=== PATIENT | male | born 1965 | race Caucasian/White ===

== ENCOUNTER → 2021-07-05 | Outpatient (CLI) | payer BC ==
[~2021-07-05] MED LIST: AMLO1TAB24 PO; ATOR1TAB21 PO; ECOT81TA5 PO; LOSA100T5 PO; LOSA100T50 PO; METO1TAB32 PO; PRIM50TA6 PO
== END ==
LOC: M LABSMTC 10:36
PROVIDERS: ATTEND Surgery
DX: Z20.828 Contact with and (suspected) exposure to other viral communicable diseases (principal); Z11.52 Encounter for screening for COVID-19

== ENCOUNTER 2021-07-10 09:36 | Day surgery (SDC) | payer BC ==
[~2021-07-10] VITALS: Ht 177.8 cm; Wt 87.5 kg
[~2021-07-10 09:36] MED LIST changes: +LIDOCAINE 2% 100MG/5ML SDV (FOR ANES.) As Ordered ONE; +NS 1,000 ML IV ONE; +propofoL 200 MG/20 ML VIAL As Ordered ONE
--- OUTSIDE RECORDS SUMMARY | 2021-07-10 09:44 | CCD | Continuity of Care Document ---
Author Author Remi Gannon Organization Unknown Address [address] [place] [address] [place] [address] Phone [phone] Care Team Providers Care Metal Drawer Name Role Phone Fani Cain AUTM [phone] Problems Active Problems Provider Date Chest pain Jayy Dill MD Onset: 07/2021 Dyspnea Jayy Dill MD Onset: 07/2021 Mixed hyperlipidemia Jayy Dill MD Onset: Essential hypertension Jayy Dill MD Onset: 04/30/2021 Social History Type Date Description Comments Sex Unknown ETOH Use Denies alcohol use Tobacco Use Start: Unknown Patient has never smoked Recreational Drug Use Denies Drug Use Allergies, Adverse Reactions, Alerts Description No Known Drug Allergies Medications Active Medications SIG Qnty Indications Ordering Provide r Date Amlodipine Besylate 5mg Tablets 1 by mouth every day Unknown Primidone 50mg Tablets 1 Tab Daily Unknown Losartan Potassium/Hydrochlorothiazide 100-25mg Tablets 1 by mouth every day Unknown /0 000 Medications Administered in Office Medication SIG Qnty Indications Ordering Provider Date Regadenoson, 0.1 MG Injection Jagdeep 06/04/2021 Covid-19 vaccine, Unspecified Inj ection Unknown 11/04/2020 Covid-19 vaccine, Unspecified Inj ection Unknown 10/07/2020 Immunizations CPT Code Status Date Vaccine Lot # U-Flu Refused 04/30/2021 Influenza,Unspecified Vital Signs Date Vital Result Comment 04/30/2021 7:29am BP Systolic Right Arm 131 mmHg BP Diastolic Right Arm 84 mmHg Heart Rate 64 /min Weight 201.00 lb Height 70 inches 5'10" BMI (Body Mass Index) 28.8 kg/m2 09/30/20 High Density Lipid 51 Low Density Lipid 131 Triglycerides 141 Total Cholesterol 198 O2 % BldC Oximetry 98 % Ra BSA (Body Surface Area) 2.09 m2 Results Description No Information Available Procedures Date Code Description Status 06/04/2021 93555 Complete ECHO Completed 06/04/2021 08942 Complete ECHO Completed 06/04/2021 82753 Cardiovascular Stress Test W/Int erpretation & Report Completed 06/04/2021 36517 Spect Image, Multiple,W/Ejection Fraction And Wall Motion Completed 04/30/2021 18055 Office/Outpatient New Moderate M DM 45-59 Minutes Completed Medical Devices Description No Information Available Encounters Type Date Location Provider Dx Diagnosis Office Visit 04/30/2021 9:00a [facility] Jayy Mccloud MD R07.9 Chest pain, unspecified R06.02 Shortness of breath E78.2 Mixed hyperlipidemia I10 Essential (primary) hyperten lulu Assessments Date Code Description Provider 06/04/2021 R07.9 Chest pain, unspecified Jayy Carpio MD 06/04/2021 R07.9 Chest pain, unspecified Melodie Moreno MD 06/04/2021 I10 Essential (primary) hypertension Jayy Dill MD 06/04/2021 R07.9 Chest pain, unspecified Jagdeep 06/04/2021 R06.02 Shortness of breath Elizabeth Moreno MD 06/04/2021 R07.9 Chest pain, unspecified Ruby D 06/04/2021 I10 Essential (primary) hypertension Melodie Moreno MD 06/04/2021 I10 Essential (primary) hypertension Jagdeep 06/04/2021 I10 Essential (primary) hypertension Ruby D 06/04/2021 R06.02 Shortness of breath Jagdeep 04/30/2021 R07.9 Chest pain, unspecified Jayy Carpio MD 04/30/2021 R06.02 Shortness of breath Jayy Faith MD 04/30/2021 E78.2 Mixed hyperlipidemia Jayy Zhang MD 04/30/2021 I10 Essential (primary) hypertension Jayy Dill MD Plan of Treatment Future Appointment(s):* 06/11/2021 11:00 am - Jenni Sargent NP at [facility] Functional Status Description No Information Available Mental Status Description No Information Available Referrals Description No Information Available
--- OUTSIDE RECORDS SUMMARY | 2021-07-10 09:44 | CCD | Continuity of Care Document ---
Author Author Remi BOYER Organization Unknown Address [address] [place] [address] [address] [place] [address] Phone [phone] Care Team Providers Care Crop Grain Or Livestock Farmer Name Role Phone Fani Cain AUTM [phone] Problems Active Problems Provider Date Chest pain Jayy Boyer MD Onset: 07/2021 Dyspnea Jayy Boyer MD Onset: 07/2021 Mixed hyperlipidemia Jayy Boyer MD Onset: Essential hypertension Jayy Boyer MD Onset: 04/30/2021 Social History Type Date [...] Medication SIG Qnty Indications Ordering Provider Date Covid-19 vaccine, Unspecified Inj ection Unknown 11/04/2020 [...] Information Available Procedures Date Code Description Status 04/30/2021 37086 Office/Outpatient New Moderate M DM 45-59 Minutes Completed Medical Devices Description No Information Available Encounters Type Date Location Provider Dx Diagnosis Office Visit 04/30/2021 9:00a [facility] aJyy Mccloud MD R07.9 Chest pain, unspecified R06.02 Shortness of breath E78.2 Mixed hyperlipidemia I10 Essential (primary) hyperten lulu Assessments Date Code Description Provider 04/30/2021 R07.9 Chest pain, unspecified Jayy Carpio MD 04/30/2021 R06.02 Shortness of breath Jayy Faith MD 04/30/2021 E78.2 Mixed hyperlipidemia Jayy Zhang MD 04/30/2021 I10 Essential (primary) hypertension Jayy Boyer MD Plan of Treatment Future Appointment(s):* 06/11/2021 11:00 am - Jenni Sargent NP at [facility] * 06/04/2021 8:30 am - Ruby Barragan at [facility] * 06/04/2021 8:15 am - Jagdeep at [facility] Functional Status Description No Information Available Mental Status Description No Information Available Referrals Description No Information Available
--- OUTSIDE RECORDS SUMMARY | 2021-07-10 09:44 | CCD | Continuity of Care Document ---
Author Author Remi MCLEAN MAILING SPECIALIST Organization Unknown Address [address] [place] [address] [place] [address] Phone [phone] Care Team Providers Care Salt Maker Name Role Phone Fani Cain AUTM [phone] Problems Active Problems Provider Date Chest pain Jayy Dill MD Onset: 07/2021 Dyspnea Jayy Dill MD Onset: 07/2021 Mixed hyperlipidemia Jayy Dill MD Onset: Essential hypertension Jayy Dill MD Onset: 04/30/2021 Dietary management surveillance Jenni Mclean NP Onset: 0 06/11/2021 Abnormal results of cardiovascular function studies Jenni Mclean NP Onset: 06/11/2021 Social History Type Date Description Comments Sex Unknown ETOH Use Denies alcohol use Recreational Drug Use Denies Drug Use Tobacco Use Start: Unknown End: Unknown Patient is a former smoker Allergies, Adverse Reactions, Alerts Description No Known Drug Allergies Medications Active Medications SIG Qnty Indications Ordering Provide r Date Atorvastatin Calcium 20mg Tablets 1 by mouth every day 90tabs Jayy Dill MD Metoprolol Succinate ER 25mg Tablets ER 24HR 1 by mouth every day 90tabs Laureen Dill MD 06/11/2021 Aspirin 81mg Chewtabs 1 by mouth every day 90units Jayy Dill MD Nitrostat 0.4mg Tablets Sub 1 tab under tongue, repeat q5 mins x2, as needed for chest pain 25tabs Jayy Dill MD 06/11/2021 Amlodipine Besylate 5mg Tablets 1 by mouth [...] Influenza,Unspecified Vital Signs Date Vital Result Comment 06/11/2021 10:48am BP Systolic Right Arm 120 mmHg BP Diastolic Right Arm 80 mmHg Heart Rate 80 /min Weight 204.00 lb Height 70 inches 5'10" BMI (Body Mass Index) 29.3 kg/m2 O2 % BldC Oximetry 98 % BSA (Body Surface Area) 2.10 m2 04/30/2021 7:29am BP Systolic Right Arm 131 [...] Information Available Procedures Date Code Description Status 06/11/2021 34088 Office/Outpatient Established Mo d MDM 30-39 Min Completed 06/04/2021 51243 Complete ECHO Completed 06/04/2021 08359 Complete ECHO Completed 06/04/2021 22143 Cardiovascular Stress Test W/Int erpretation & Report Completed 06/04/2021 40270 Spect Image, Multiple,W/Ejection Fraction And Wall Motion Completed 04/30/2021 51176 Office/Outpatient New Moderate M DM 45-59 Minutes Completed Medical Devices Description No Information Available Encounters Type Date Location Provider Dx Diagnosis [facility] MAILING SPECIALIST R94.39 Abnormal result of other cardiovascular function study I10 Essential (primary) hyperten lulu E78.2 Mixed hyperlipidemia Z71.3 Dietary counseling and surve illance Office Visit 04/30/2021 9:00a [facility] Jayy Mccloud MD R07.9 Chest pain, unspecified R06.02 Shortness of breath E78.2 Mixed hyperlipidemia I10 Essential (primary) hyperten lulu Assessments Date Code Description Provider 06/11/2021 R94.39 Abnormal result of other cardiov ascular function study Jenni Mclean, BRINDA 06/11/2021 I10 Essential (primary) hypertension Jenni Mclean NP 06/11/2021 E78.2 Mixed hyperlipidemia Jose Mclean NP 06/11/2021 Z71.3 Dietary counseling and surveilla nce Jenni Mclean NP 06/04/2021 R07.9 Chest pain, unspecified Jayy Carpio [...] Dill MD Plan of Treatment Future Appointment(s):* 12/11/2021 8:45 am - Jayy Dill MD at [facility] 06/11/2021 - Jenni Mclean NP* R94.39 Abnormal result of other cardiovascular function study * I10 Essential (primary) hypertension * E78.2 Mixed hyperlipidemia * Z71.3 Dietary counseling and surveillance* New Labs:* Lipid Extended Panel, Ordered: 06/11/21 * Follow up:* 6 months HJ Functional Status Description No Information Available Mental Status Description No Information Available Referrals Description No Information Available
--- OUTSIDE RECORDS SUMMARY | 2021-07-10 09:44 | CCD | Continuity of Care Document ---
Author Organization Unknown Address Unknown Phone Unavailable Care Team Providers Care Bull Chain Operator Name Role Phone Haris Bell JR., M.D. AUTM [facility] - Cardiovascular Disease AUTM [phone] Problems Active Problems Provider Date Essential hypertension Corey Jimenez M.D. 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 Onset: 12/26/2010 Social History Type Date Description Comments Sex Unknown Tobacco Use Start: Unknown Never Used Smokeless Tobacco ETOH Use Consumes 3-4 beers per day Recreational Drug Use Denies Drug Use Tobacco Use Start: Unknown End: Unknown Patient is a former smoker x 10 years, quit in his 30's. Smoking Status Reviewed: 04/09/21 Patient is a former smoker x 10 years, quit in his 30's. Exercise Type/Frequency Exercises sporadically Tattoo/Piercing Tattoo Sun Exposure Does not use sunscreen Seat Belt/Car Seat Always uses seat belt Bike Helmet Always Smoke Alarms Yes Smoke Alarms Carbon Monoxide Detector: Yes Allergies and adverse reactions Description No Known Drug Allergies Medications Active Medications SIG Qnty Indications Ordering Provide r Date Amlodipine Besylate 5mg Tablets Take 1 Tablet By Mouth Every Day For Blood Pressure 90tabs I10 Fani Ibarra FNP 03/07/2021 Primidone 50mg Tablets take 1 tablet by mouth daily 90tabs G25.0 Fani Cain FNP 04/09/2020 Losartan Potassium/Hydrochlorothiazide 100-25mg Tablets Take 1 Tablet By Mouth Every Morning For Blood Pressure 90tabs I10 Alaina Bond M.D. 07/26/2017 Immunizations Description No Information Available Vital Signs Date Vital Result Comment 04/09/2021 1:57pm BP Systolic 125 mmHg BP Diastolic 81 mmHg Heart Rate 80 /min Body Temperature 97.8 F Respiratory Rate 16 /min Height 69 inches 5'9" Weight 200.25 lb O2 % BldC Oximetry 98 % Peak Expiratory Flow Rate 515 Estimated Peak Flow Rate Taft Body Weight 160 lb BMI (Body Mass Index) 29.6 kg/m2 03/07/2021 7:52am BP Systolic 143 mmHg BP Diastolic 89 mmHg BP Systolic Recheck 129 mmHg BP Diastolic Recheck 83 mmHg Heart Rate 72 /min Body Temperature 96.7 F Respiratory Rate 18 /min Height 69 inches 5'9" Weight 199.38 lb O2 % BldC Oximetry 98 % Peak Expiratory Flow Rate 515 Estimated Peak Flow Rate Taft Body Weight 160 lb BMI (Body Mass Index) 29.4 kg/m2 Results Test Acquired Date Facility Test Result H/L Range Note Coronavirus 2019 Nasopharygeal 07/05/[address] [place] [address] [phone] Coronavirus 2019 Nasopharygeal ASSAY INFORMATIO <SEE N OTE> 1 Hemoglobin A1c 03/26/2021 [facility] HGB A1c 5.4 % 4.4 - 6.1 2 Microalbumin Random 03/26/2021 [facility] Creat Ur 261.9 mg/dL High 0.0 - 30.0 Microalbumin <12.00 mg/L High 0.00 - 0.00 MA/Creat Ratio 1.87 MCG/MG 0.01 - 30.00 3 [facility] 1.15 ng/mL 0.00 - 4.00 4 Urinalysis 03/04/2021 [facility] Urinalysis (SEE NOTE) 5, 6 Source Clean Catch Color yellow Normal: Yellow Clarity clear Normal: Clear Spec [place] 1.005 1.001 - 1.030 pH 6.5 5 - 9 Glucose NORM Normal: Negative Bilirubin NEG Normal: Negative Ketone NEG Normal: Negative Protein NEG Normal: Negative Nitrite NEG Normal: Negative Blood NEG Normal: Negative Leuk Est NEG Normal: Negative Urobilinogen NOR less than 1.0 mg/dL Microscopic Not Indicate CBC W/Automated Diff 03/04/2021 [facility] CBC W/Automated Diff (SEE NOTE) 7 WBC 6.8 10^3/uL 4.2 - 11.0 RBC 4.85 10^6/uL 4.50 - 6.30 Hemoglobin 15.5 g/dL 14.0 - 16.0 Hematocrit 44.3 % 41.0 - 51.0 MCV 91.3 fL 80.0 - 94.0 MCH 32.0 pg 27.0 - 34.0 MCHC 35.0 g/dL 31.0 - 36.0 RDW 11.9 % 11.5 - 14.8 Platelets 241 10^3/uL 150 - 450 MPV 9.3 fL 7.4 - 10.4 Neut 50.9 % 37.0 - 80.0 Lymph 34.6 % 25.0 - 40.0 [place] 9.7 % High 3.0 - 8.0 Eos 3.8 % 0.0 - 7.0 Baso 0.7 % 0.0 - 2.0 %Ig 0.3 % High 0.0 - 0.0 %NRBC 0.0 % 0.0 - 0.0 #Neut 3.46 10^3/uL 2.00 - 6.90 #Lymph 2.35 10^3/uL 0.60 - 3.40 #Brun[place] 0.66 10^3/uL 0.00 - 0.90 #Eos 0.26 10^3/uL 0.00 - 0.70 #Baso 0.05 10^3/uL 0.00 - 0.20 #Ig 0.02 10^3/uL 0.00 - 0.10 #NRBC 0.00 10^3/uL 0.00 - 0.00 Manual Diff NOT INDICATED RBC Morph NOT INDICATED PT/PTT 03/04/2021 [facility] Protime 13.3 seconds 11.0 - 15.5 Inr 1.00 0.93 - 1.23 PTT 34.8 seconds 24.8 - 36.7 8 Laboratory test finding 03/04/2021 [facility] l Troponin T <0.01 NG/ML 0.00 - 0.10 9 Comprehensive Metabolic Panel 03/04/2021 [facility] Comprehensive Metabo (SEE NOTE) 10 Sodium 136 mEq/L 134 - 153 Potassium 3.5 mEq/L Low 3.6 - 5.0 Chloride 99 mEq/L 98 - 107 Co2 27 mEq/L 22 - 30 Glucose 80 mg/dL 70 - 99 BUN 17 mg/dL 7 - 21 Creatinine 0.9 mg/dL 0.7 - 1.5 BUN/Creat 19 8 - 27 Total Protein 7.0 g/dL 6.3 - 8.2 Albumin 4.6 g/dL 3.9 - 5.0 Globulin 2.4 GM/DL 2.4 - 3.2 A/G Ratio 1.9 0.8 - 2.0 Calcium 9.5 mg/dL 8.4 - 10.2 Total Bili <0.7 mg/dL 0.2 - 1.3 Alkaline Phos 83 U/L 38 - 126 Sgot/Ast 49 U/L High 5 - 40 SGPT/Alt 51 U/L 7 - 56 Anion Gap 10.0 mmol/L 8.0 - 16.0 Age 55 yrs Non-Aa GFR >60 mL/min Afr Amer GFR >60 mL/min 11 1 ASSAY INFORMATION: Real Time RT-PCR NOTE: The COVID-19 assay has been cleared by the U.S. Food and Drug Administration under the Emergency Use Authorization (EUA). [employer] and [employer] are designated as high complexity laboratories by the Clinical Laboratory Improvement Amendments of 1988(CLIA) and are qualified to perform this test. Not Detected 2 {A1] {HB] 3 The [place] [employer] ation states that Microalbuminemia is present if the Microalbumin/Creatinine ratio exceeds 30 mcg/mg. The threshold for Clinical Albuminuria is reached at 300 mcg/mg. The classification of a patient should be based upon at least 2 or 3 abnormal results on specimens collected within a 3 to 6 month timeframe. 4 \\BLDo\\PSA INTERPRETATION\\BLD x\\ The PSA assay should not be used alone for a screening test or diagnosis for presence or absence of malignant disease. Predictions of disease recurrence should not be based solely on values obtained from serial patient serum values. The PSA result was determined by "[employer]", on the Crist[employer] DELVIS 6000. Values obtained with different assay methods or kits cannot be used interchangeably. 5 SOURCE: Clean Catch 6 URINALYSIS 7 COMPLETE BLOOD COUNT 8 \\BLDo\\INR INTERPRETATION\\BLD x\\ Therapeutic range for Coumadin and related oral anticoagulants. -International Normalized Ratio (INR): 2 .0 - 3.0 for Venous Thrombosis, Pulmonary Embolus, Tissue heart valves, Acute IA Atrial Fibrillation, Valvular heart disease and recurrent Systemic Embolism. -International Normalized Ratio (INR): 2 .5 - 3.5 for Mechanical Prosthetic valve. 9 TROPONIN T 0.1 ng/ml Recommended as the clinical th reshold value for Troponin T. 10 COMPREHENSIVE METABOLIC PANE L 11 Male GFR Interprentation 20-49 yrs >60 mL/min Normal 50-59 yrs >56 mL/min Normal 60-69 yrs >49 mL/min Normal 70-79yrs >42 mL/min Normal 80 and above >35 mL/min Normal Female GFR Interpretation 20-39 yrs >60 mL/min Normal 40-49 yrs >58 mL/min Normal 50-59 yrs >51 mL/min Normal 60-69 yrs >45 mL/min Normal 70-79 yrs >39 mL/min Normal 80 and above >32 mL/min Normal Procedures Date Code Description Status 04/09/2021 78481 Office/Outpatient Established Mo d MDM 30-39 Min Completed 03/07/2021 26927 Office/Outpatient Established Mo d MDM 30-39 Min Completed Medical Devices Description No Information Available Encounters Type Date Location Provider Dx Diagnosis Office Visit 04/09/2021 2:00p Main Office Fani Cain, SEARCH ENGINE OPTIMIZATION ANALYST I10 Essential (primary) hypertension R73.03 Prediabetes G25.0 Essential tremor Z80.42 Family history of malignant neoplasm of prostate Office Visit 03/07/2021 8:00a Main Office Fani Cain, SEARCH ENGINE OPTIMIZATION ANALYST I10 Essential (primary) hypertension R07.89 Other chest pain Assessments Date Code Description Provider 04/09/2021 I10 Essential (primary) hypertension Fani Cain, SEARCH ENGINE OPTIMIZATION ANALYST 04/09/2021 R73.03 Prediabetes StveeachAlexy, SEARCH ENGINE OPTIMIZATION ANALYST 04/09/2021 G25.0 Essential tremor Plemaiteach, Fani , SEARCH ENGINE OPTIMIZATION ANALYST 04/09/2021 Z80.42 Family history of malignant neop lasm of prostate Fani Cain, SEARCH ENGINE OPTIMIZATION ANALYST 03/07/2021 I10 Essential (primary) hypertension Fani Cain, SEARCH ENGINE OPTIMIZATION ANALYST 03/07/2021 R07.89 Other chest pain PleskFani prado , SEARCH ENGINE OPTIMIZATION ANALYST Plan of Treatment Future Appointment(s):* 10/14/2021 11:30 am - Fani Cain FNP at Main Office 04/09/2021 - Fani Cain FNP* I10 Essential (primary) hypertension* New Labs:* Comprehensive Metabolic Profil, Scheduled: 09/22/21 * Lipid Panel, Scheduled: 09/22/21 * Hemoglobin A1c, Scheduled: 09/22/21 * Comments:* controlled, continue current medications * Follow up:* 6 months, with labs for annual * R73.03 Prediabetes* Comments:* A1C improved at 5.4 * G25.0 Essential tremor* Comments:* continue primidone at current dose * Z80.42 Family history of malignant neoplasm of prostate* Comments:* PSA normal Functional Status Functional Condition Comment Date Status Independent with all ADL's Activ e Bifocal glasses Active Ipg in Back nerve stimulator Active Independent with all IADL's Acti ve Mental Status Mental Condition Comment Date Status None Active Referrals Refer to Reason for Referral Status Appt Date [facility] Please evaluate patient for chest pain. Thank you. Closed 04/30/[address] [place] [address] [phone] Ray ALMODOVAR M.D., Haris Bell. Pt is due for his 5 year col onoscopy, pt is requesting dr bell. Thank you. Closed 02/26/2021 [address] [facility] [address] [phone]
--- OUTSIDE RECORDS SUMMARY | 2021-07-10 09:44 | CCD | Continuity of Care Document ---
Author Author Remi BELL MD Organization Unknown Address [address] [facility] [address] [place] [address] Phone [phone] Care Team Providers Care Kier Boiler Name Role Phone Fani Cain N.P. AUTM [phone] Problems Active Problems Provider Date Essential hypertension Haris Bell JR, MD Onset: 02/27/20 21 Social History Type Date Description Comments Sex Unknown ETOH Use 3 A Day Recreational Drug Use Denies Drug Use Tobacco Use Start: Unknown End: Patient is a former smoker Allergies and adverse reactions Description No Known Drug Allergies Medications Active Medications SIG Qnty Indications Ordering Provide r Date Suprep Bowel Prep Kit 17.5-3.13-1.6GM/177ML Solution take per doctor's bowel prep instructions. 354ml Z12.1 1 Haris Bell JR, MD 05/15/2021 Losartan Potassium/Hydrochlorothiazide 100-25mg Tablets 1 tab po qd Alaina Bond M.D. Immunizations Description No Information Available Vital Signs Date Vital Result Comment 02/26/2021 3:11pm Heart Rate 80 /min Height 70 inches 5'10" Weight 198.12 lb BMI (Body Mass Index) 28.4 kg/m2 Anderson Body Weight 166 lb Weight 89.870 kg BSA (Body Surface Area) 2.08 m2 Results Test Acquired Date Facility Test Result H/L Range Note Coronavirus 2019 Nasopharygeal 07/05/2021 [facility] Main Lab [address] [place], [place] [id number] [phone] Coronavirus 2019 Nasopharygeal ASSAY INFORMATIO <SEE N OTE> 1 1 ASSAY INFORMATION: Real Time RT-PCR NOTE: The COVID-19 assay has been cleared by the U.S. Food and Drug Administration under the Emergency Use Authorization (EUA). [employer] and [employer] are designated as high complexity laboratories by the Clinical Laboratory Improvement Amendments of 1988(CLIA) and are qualified to perform this test. Not Detected Procedures Date Code Description Status 02/26/2021 26329 Office/Outpatient New Low MDM 30 -44 Minutes Completed Medical Devices Description No Information Available Encounters Type Date Location Provider Dx Diagnosis Office Visit 02/26/2021 1:30p [facility] KIRA Sharma K63.5 Polyp of colon I10 Essential (primary) hyperten lulu Assessments Date Code Description Provider 02/26/2021 K63.5 Polyp of colon KIRA Lyn 02/26/2021 I10 Essential (primary) hypertension KIRA Lyn Plan of Treatment Future Appointment(s):* 07/24/2021 1:45 pm - KIRA Lyn at [facility] * 07/10/2021 10:40 am - Haris Bell JR, MD at [facility] 02/26/2021 - KIRA Lyn* K63.5 Polyp of colon * I10 Essential (primary) hypertension Functional Status Description No Information Available Mental Status Description No Information Available Referrals Refer to Reason for Referral Status Appt Date Haris Bell JR, MD COLONOSCOPY Scheduled [address] [address] [phone]
--- OUTSIDE RECORDS SUMMARY | 2021-07-10 09:44 | CCD | Continuity of Care Document ---
Author Author Remi Simmons Organization Unknown Address [address] [place] [address] [address] [place] [address] Phone [phone] Care Team Providers Care Immigration Attorney Name Role Phone Fani Cain AUTM [phone] Problems Active Problems Provider Date Chest pain [...] Available Procedures Date Code Description Status 06/04/2021 75514 Complete ECHO Completed 06/04/2021 11522 Complete ECHO Completed 06/04/2021 58075 Cardiovascular Stress Test W/Int erpretation & Report Completed 06/04/2021 35849 Spect Image, Multiple,W/Ejection Fraction And Wall Motion Completed 04/30/2021 11916 Office/Outpatient New Moderate M DM 45-59 Minutes Completed Medical Devices Description No Information Available Encounters Type Date Location Provider Dx Diagnosis Office Visit 04/30/2021 9:00a [facility] Jayy Mccloud MD R07.9 Chest pain, [...] 11:00 am - Jenni Sargent NP at [facility] Functional Status Description No Information Available Mental Status Description No Information Available Referrals Description No Information Available
--- OUTSIDE RECORDS SUMMARY | 2021-07-10 09:45 | CCD ---
Author Author [facility] Organization [facility] Address Unknown Phone Unavailable Care Team Providers Care Mall Manager Name Role Phone Beau, A Sandra PA Unavailable Unavailable Augusta, A Sandra PA Unavailable Unavailable Augusta, A Sandra PA Unavailable Unavailable Beau, A Sandra PA Unavailable Unavailable Augusta, A Sandra PA Unavailable Unavailable Beau, A Sandra PA Unavailable Unavailable Augusta, A Sandra PA Unavailable Unavailable Augusta, A Sandra PA Unavailable Unavailable Augusta, A Sandra PA Unavailable Unavailable Beau, A Sandra PA Unavailable Unavailable Augusta, A Sandra PA Unavailable Unavailable Augusta, A Sandra PA Unavailable Unavailable Beau, A Sandra PA Unavailable Unavailable Augusta, A Sandra PA Unavailable Unavailable Augusta, A Sandra PA Unavailable Unavailable Augusta, A Sandra PA Unavailable Unavailable Beau, A Sandra PA Unavailable Unavailable Augusta, A Sandra PA Unavailable Unavailable Augusta, A Sandra PA Unavailable Unavailable Beau, A Sandra PA Unavailable Unavailable Augusta, A Sandra PA Unavailable Unavailable Augusta, A Sandra PA Unavailable Unavailable Beau, A Sandra PA Unavailable Unavailable Beau, A Sandra PA Unavailable Unavailable Augusta, A Sandra PA Unavailable Unavailable Beau, A Sandra PA Unavailable Unavailable Augusta, A Sandra PA Unavailable Unavailable Beau, A Sandra PA Unavailable Unavailable Augusta, A Sandra PA Unavailable Unavailable Augusta, A Sandra PA Unavailable Unavailable Augusta, A Sandra PA Unavailable Unavailable Augusta, A Sandra PA Unavailable Unavailable Deanna Osborn MD Unavailable Smart MD, Deanna L Unavailable Smart MD, Deanna L Unavailable Smart MD, Deanna L Unavailable Smart MD, Deanna L Unavailable Smart MD, Deanna L Unavailable Smart MD, Deanna L Unavailable Smart MD, Deanna L Unavailable Smart MD, Deanna L Unavailable Smart MD, Deanna L Unavailable Smart MD, Deanna L Unavailable Smart MD, Deanna L Unavailable Smart MD, Deanna L Unavailable Smart MD, Deanna L Unavailable Smart MD, Deanna L Unavailable Smart MD, Deanna L Unavailable Smart MD, Deanna L Unavailable Smart MD, Deanna L Unavailable Smart MD, Deanna L Unavailable Smart MD, Deanna L Unavailable Smart MD, Denana L Unavailable Smart MD, Deanna L Unavailable Smart MD, Deanna L Unavailable Smart MD, Deanna L Unavailable Smart MD, Deanna L Unavailable Smart MD, Deanna L Unavailable Smart MD, Deanna L Unavailable Smart MD, Deanna L Unavailable Smart MD, Deanna L Unavailable Smart MD, Deanna L Unavailable Smart MD, Deanna L Unavailable Smart MD, Deanna L Unavailable Smart MD, Deanna L Unavailable Smart MD, Deanna L Unavailable Smart MD, Deanna L Unavailable Smart MD, Deanna L Unavailable Smart MD, Deanna L Unavailable Smart MD, Deanna L Unavailable Smart MD, Deanna L Unavailable Smart MD, Deanna L Unavailable Smart MD, Deanna L Unavailable Smart MD, Deanna L Unavailable Smart MD, Deanna L Unavailable Smart MD, Deanna L Unavailable Smart MD, Deanna L Unavailable Smart MD, Deanna L Unavailable Smart MD, Deanna L Unavailable Smart MD, Deanna L Unavailable Smart MD, Deanna L Unavailable Smart MD, Deanna L Unavailable Smart MD, Deanna L Unavailable Smart MD, Deanna L Unavailable Smart MD, Deanna L Unavailable Smart MD, Deanna L Unavailable Smart MD, Deanna L Unavailable Smart MD, Deanna L Unavailable Jayy Dill MD Unavailable Unavailabl e Jayy Dill MD Unavailable Unavailabl e Jayy Dill MD Unavailable Unavailabl e Jayy Dill MD Unavailable Unavailabl e Jayy Dill MD Unavailable Unavailabl e Jayy Dill MD Unavailable Unavailabl e Jayy Dill MD Unavailable Unavailabl e Jayy Dill MD Unavailable Unavailabl e Jayy Dill MD Unavailable Unavailabl e Ranjbaran-Jahromi, Jayy MD Unavailable Unavailabl e Ranjbaran-Jahromi, Jayy MD Unavailable Unavailabl e Ranjbaran-Jahromi, Jayy MD Unavailable Unavailabl e Ranjbaran-Jahromi, Jayy MD Unavailable Unavailabl e Ranjbaran-Jahromi, Jayy MD Unavailable Unavailabl e Ranjbaran-Jahromi, Jayy MD Unavailable Unavailabl e Ranjbaran-Jahromi, Jayy MD Unavailable Unavailabl e Ranjbaran-Jahromi, Jayy MD Unavailable Unavailabl e Ranjbaran-Jahromi, Jayy MD Unavailable Unavailabl e Jamiebaran-Jahromi, Jayy MD Unavailable Unavailabl e Jamiebaran-Jahromi, Jayy MD Unavailable Unavailabl e Ranjbaran-Jahromi, Jayy MD Unavailable Unavailabl e Jamiebaran-Jahromi, Jayy MD Unavailable Unavailabl e Jamiebaran-Jahromi, Jayy MD Unavailable Unavailabl e Jamiebaran-Jahromi, Jayy MD Unavailable Unavailabl e Elfegojbaran-Jahromi, Jayy MD Unavailable Unavailabl e Jamiebarclaudette-Jahromi, Jayy MD Unavailable Unavailabl e Kaci-Landonhromi Jayy MD Unavailable Unavailabl e Jamiebaran-Jahromi, Jayy MD Unavailable Unavailabl e Jamiebaran-Jahromi, Jayy MD Unavailable Unavailabl e Jamiebaran-Jahromi Jayy MD Unavailable Unavailabl e Jamiebaran-Jahromi, Jayy MD Unavailable Unavailabl e Ranjbaran-Jahromi, Jayy MD Unavailable Unavailabl e Jamiebaran-Jahromi, Jayy MD Unavailable Unavailabl e Jamiebaran-Jahromi, Jayy MD Unavailable Unavailabl e Jamiebarclaudette-Landonhromi Jayy MD Unavailable Unavailabl e Jamiebaran-Jahromi, Jayy MD Unavailable Unavailabl e Jamiebaran-Jahromi, Jayy MD Unavailable Unavailabl e Titaan-Jahromi Jayy MD Unavailable Unavailabl e Jamiebaran-Landonhromi Jayy MD Unavailable Unavailabl e Ranjbaran-Jahromi, Jayy MD Unavailable Unavailabl e Jamiebaran-Jahromi Jayy MD Unavailable Unavailabl e Ranjbaran-Jahromi Jayy MD Unavailable Unavailabl e Ranjbaran-Jahromi, Jayy MD Unavailable Unavailabl e Ranjbaran-Jahromi Jayy MD Unavailable Unavailabl e Ranturnerbaran-Jahromi Jayy MD Unavailable Unavailabl e Ranjbaran-Jahromi Jayy MD Unavailable Unavailabl e Ranjbaran-Jahromi Jayy MD Unavailable Unavailabl e Ranjbaran-Jahromi Jayy MD Unavailable Unavailabl e Elfegojbaran-Jahromi Jayy MD Unavailable Unavailabl e Ranjbaran-Jahromi Jayy MD Unavailable Unavailabl e Ranturnerbaran-Jahromi Jayy MD Unavailable Unavailabl e aJmiebaran-Jahromi Jayy MD Unavailable Unavailabl e Jamiebaran-Jahromi Jayy MD Unavailable Unavailabl e Ranjbaran-Jahromi Jayy MD Unavailable Unavailabl e Jamiebaran-Jahromi Jayy MD Unavailable Unavailabl e Titaan-Jahromi Jayyantonietta CHALRES Unavailable Unavailabl e Jamiebaran-Jahromi Jayy MD Unavailable Unavailabl e Jamiebaran-Jahromi Jayy MD Unavailable Unavailabl e Kaci-Jahromi Jayy MD Unavailable Unavailabl e Titaan-Jahromi Jayyantonietta CHARLES Unavailable Unavailabl e Ranturnerbaran-Jahromi Jayy MD Unavailable Unavailabl e Ranturnerbaran-Jahromi Jayy MD Unavailable Unavailabl e Jamiebaran-Jahromi Jayy MD Unavailable Unavailabl e Titaan-Jahromi Jayyantonietta CHARLES Unavailable Unavailabl e Jamiebaran-Jahromi Jayy MD Unavailable Unavailabl e Ranturnerbaran-Jahromi Jayyantonietta CHARLES Unavailable Unavailabl e Jamiebaran-Jahromi Jayyantonietta CHARLES Unavailable Unavailabl e Titaan-Jahromi Jayyantonietta CHARLES Unavailable Unavailabl e Ranjbaran-Jahromi, Jayy MD Unavailable Unavailabl e Ranjbaran-Jahromi, Jayy MD Unavailable Unavailabl e Ranjbaran-Jahromi, Jayy MD Unavailable Unavailabl e Ranjbaran-Jahromi, Jayy MD Unavailable Unavailabl e Ranjbaran-Jahromi, Jayy MD Unavailable Unavailabl e Ranjbaran-Jahromi, Jayy MD Unavailable Unavailabl e Ranjbaran-Jahromi, Jayy MD Unavailable Unavailabl e Ranjbaran-Jahromi, Jayy MD Unavailable Unavailabl e Ranjbaran-Jahromi, Jayy MD Unavailable Unavailabl e Ranjbaran-Jahromi, Jayy MD Unavailable Unavailabl e Ranjbaran-Jahromi, Jayy MD Unavailable Unavailabl e Ranjbaran-Jahromi, Jayy MD Unavailable Unavailabl e Ranjbaran-Jahromi, Jayy MD Unavailable Unavailabl e Ranjbaran-Jahromi, Jayy MD Unavailable Unavailabl e Ranjbaran-Jahromi, Jayy MD Unavailable Unavailabl e Ranjbaran-Jahromi, Jayy MD Unavailable Unavailabl e Ranjbaran-Jahromi, Jayy MD Unavailable Unavailabl e Ranjbaran-Jahromi, Jayy MD Unavailable Unavailabl e Ranjbaran-Jahromi, Jayy MD Unavailable Unavailabl e Ranjbaran-Jahromi, Jayy MD Unavailable Unavailabl e Ranturnerbaran-Jahromi, Jayy MD Unavailable Unavailabl e DEANNA OSBORN Unavailable Unavailable Isidoro Bond MD Unavailable Unavailable Isidoro Bond MD Unavailable Unavailable Isidoro Bond MD Unavailable Unavailable Isidoro Bond MD Unavailable Unavailable Isidoro Bond MD Unavailable Unavailable Isidoro Bond MD Unavailable Unavailable Isidoro Bond MD Unavailable Unavailable Isidoro Bond MD Unavailable Unavailable Isidoro Bond MD Unavailable Unavailable Isidoro Bond MD Unavailable Unavailable Isidoro Bond MD Unavailable Unavailable Isidoro Bond MD Unavailable Unavailable Isidoro Bond MD Unavailable Unavailable Isidoro Bond MD Unavailable Unavailable Isidoro Bond MD Unavailable Unavailable Isidoro Bond MD Unavailable Unavailable Isidoro Bond MD Unavailable Unavailable Isidoro Bond MD Unavailable Unavailable Lenora, Isidoro Foley MD Unavailable Unavailable Lenora, Isidoro Foley MD Unavailable Unavailable Lenora, Isidoro Foley MD Unavailable Unavailable Lenora, Isidoro Foley MD Unavailable Unavailable Lenora, Isidoro Foley MD Unavailable Unavailable Lenora, Isidoro Foley MD Unavailable Unavailable Lenora, Isidoro Foley MD Unavailable Unavailable Lenora, Isidoro Foley MD Unavailable Unavailable Lenora, Isidoro Foley MD Unavailable Unavailable Lenora, Isidoro Foley MD Unavailable Unavailable Lenora, Isidoro Foley MD Unavailable Unavailable Lenora, Isidoro Foley MD Unavailable Unavailable Lenora, Isidoro Foley MD Unavailable Unavailable Lenora, Isidoro Foley MD Unavailable Unavailable Lenora, Isidoro Foley MD Unavailable Unavailable Lenora, Isidoro Foley MD Unavailable Unavailable Lenora, Isidoro Foley MD Unavailable Unavailable Lenora, Isidoro Foley MD Unavailable Unavailable Lenora, Isidoro Foley MD Unavailable Unavailable Lenora, Isidoro Foley MD Unavailable Unavailable Lenora, Isidoro Foley MD Unavailable Unavailable Lenora, Isidoro Foley MD Unavailable Unavailable Lenora, Isidoro Foley MD Unavailable Unavailable Lenora, Isidoro Foley MD Unavailable Unavailable Lenora, Isidoro Foley MD Unavailable Unavailable Lenora, Isidoro Foley MD Unavailable Unavailable Lenora, Isidoro Foley MD Unavailable Unavailable Lenora, A Alaina CHARLES Unavailable Unavailable Lenora, Isidoro Foley MD Unavailable Unavailable Lenora, Isidoro Foley MD Unavailable Unavailable Lenora, Isidoro Foley MD Unavailable Unavailable Lenora, Isidoro Foley MD Unavailable Unavailable Lenora, Isidoro Foley MD Unavailable Unavailable Lenora, Isidoro Foley MD Unavailable Unavailable Lenora, Isidoro Foley MD Unavailable Unavailable Lenora, Isidoro Foley MD Unavailable Unavailable Lenora, Isidoro Foley MD Unavailable Unavailable Lenora, Isidoro Foley MD Unavailable Unavailable Lenora, Isidoro Foley MD Unavailable Unavailable Lenora, Isidoro Foley MD Unavailable Unavailable Lenora, Isidoro Foley MD Unavailable Unavailable Lenora, Isidoro Foley MD Unavailable Unavailable Lenora, Isidoro Foley MD Unavailable Unavailable Lneora, Isidoro Foley MD Unavailable Unavailable Lenora, Isidoro Foley MD Unavailable Unavailable Lenora, Isidoro Foley MD Unavailable Unavailable Lenora, Isidoro Foley MD Unavailable Unavailable Lenora, Isidoro Foley MD Unavailable Unavailable Lenora, Isidoro Foley MD Unavailable Unavailable Lenora, Isidoro Foley MD Unavailable Unavailable Lenora, Isidoro Foley MD Unavailable Unavailable Lenora, Isidoro Foley MD Unavailable Unavailable Lenora, Isidoro Foley MD Unavailable Unavailable Lenora, Isidoro Foley MD Unavailable Unavailable Lenora, Isidoro Foley MD Unavailable Unavailable Lenora, Isidoro Foley MD Unavailable Unavailable Lenora, Isidoro Foley MD Unavailable Unavailable Lenora, Isidoro Foley MD Unavailable Unavailable Lenora, Isidoro Foley MD Unavailable Unavailable Lenora, Isidoro Foley MD Unavailable Unavailable Lenora, Isidoro Foley MD Unavailable Unavailable Lenora, Isidoro Foley MD Unavailable Unavailable Lenora, Isidoro Foley MD Unavailable Unavailable Lenora, A Alaina MD Unavailable Unavailable Pleskach, Fani ASIC DESIGN ENGINEER Unavailable Unavailable Pleskach, Fani ASIC DESIGN ENGINEER Unavailable Unavailable Pleskach, Fani ASIC DESIGN ENGINEER Unavailable Unavailable Pleskach, Fani ASIC DESIGN ENGINEER Unavailable Unavailable Pleskach, Fani ASIC DESIGN ENGINEER Unavailable Unavailable Pleskach, Fani ASIC DESIGN ENGINEER Unavailable Unavailable Pleskach, Fani ASIC DESIGN ENGINEER Unavailable Unavailable Pleskach, Fani ASIC DESIGN ENGINEER Unavailable Unavailable Pleskach, Fani ASIC DESIGN ENGINEER Unavailable Unavailable Pleskach, Fani ASIC DESIGN ENGINEER Unavailable Unavailable Pleskach, Fani ASIC DESIGN ENGINEER Unavailable Unavailable Pleskach, Fani ASIC DESIGN ENGINEER Unavailable Unavailable Pleskach, Fani ASIC DESIGN ENGINEER Unavailable Unavailable Pleskach, Fani ASIC DESIGN ENGINEER Unavailable Unavailable Pleskach, Fani ASIC DESIGN ENGINEER Unavailable Unavailable Pleskach, Fani ASIC DESIGN ENGINEER Unavailable Unavailable Pleskach, Fani ASIC DESIGN ENGINEER Unavailable Unavailable Pleskach, Fani ASIC DESIGN ENGINEER Unavailable Unavailable Pleskach, Fani ASIC DESIGN ENGINEER Unavailable Unavailable Pleskach, Fani ASIC DESIGN ENGINEER Unavailable Unavailable Pleskach, Fani ASIC DESIGN ENGINEER Unavailable Unavailable Pleskach, Fani ASIC DESIGN ENGINEER Unavailable Unavailable Pleskach, Fani ASIC DESIGN ENGINEER Unavailable Unavailable Pleskach, Fani ASIC DESIGN ENGINEER Unavailable Unavailable Pleskach, Fani ASIC DESIGN ENGINEER Unavailable Unavailable Pleskach, Fani ASIC DESIGN ENGINEER Unavailable Unavailable Pleskach, Fani ASIC DESIGN ENGINEER Unavailable Unavailable Pleskach, Fani ASIC DESIGN ENGINEER Unavailable Unavailable Pleskach, Fani ASIC DESIGN ENGINEER Unavailable Unavailable Pleskach, Fani ASIC DESIGN ENGINEER Unavailable Unavailable Pleskach, Fani ASIC DESIGN ENGINEER Unavailable Unavailable Pleskach, Fani ASIC DESIGN ENGINEER Unavailable Unavailable Pleskach, Fani ASIC DESIGN ENGINEER Unavailable Unavailable Pleskach, Fani ASIC DESIGN ENGINEER Unavailable Unavailable Pleskach, Fani ASIC DESIGN ENGINEER Unavailable Unavailable Pleskach, Fani ASIC DESIGN ENGINEER Unavailable Unavailable Pleskach, Fani ASIC DESIGN ENGINEER Unavailable Unavailable Pleskach, Fani ASIC DESIGN ENGINEER Unavailable Unavailable Pleskach, Fani ASIC DESIGN ENGINEER Unavailable Unavailable Pleskach, Fani ASIC DESIGN ENGINEER Unavailable Unavailable Pleskach, Fani ASIC DESIGN ENGINEER Unavailable Unavailable Pleskach, Fani ASIC DESIGN ENGINEER Unavailable Unavailable Irena CHARLES, Deanna Ibrahim Unavailable Deanna Osborn MD Unavailable Deanna Osborn MD Unavailable Mayuri Thomas MD Unavailable Unavailable Mayuri Thomas MD Unavailable Unavailable Mayuri Thomas MD Unavailable Unavailable Mayuri Thomas MD Unavailable Unavailable Mayuri Thomas MD Unavailable Unavailable Mayuri Thomas MD Unavailable Unavailable Mayuri Thomas MD Unavailable Unavailable Mayuri Thomas MD Unavailable Unavailable Mayuri Thomas MD Unavailable Unavailable Mayuri Thomas MD Unavailable Unavailable Mayuri Thomas MD Unavailable Unavailable Mayuri Thomas MD Unavailable Unavailable Mayuri Thomas MD Unavailable Unavailable Mayuri Thomas MD Unavailable Unavailable Mayuri Thomas MD Unavailable Unavailable Mayuri Thomas MD Unavailable Unavailable Mayuri Thomas MD Unavailable Unavailable Mayuri Thomas MD Unavailable Unavailable Mayuri Thomas MD Unavailable Unavailable Mayuri Thomas MD Unavailable Unavailable Mayuri Thomas MD Unavailable Unavailable Mayuri Thomas MD Unavailable Unavailable Mayuri Thomas MD Unavailable Unavailable Mayuri Thomas MD Unavailable Unavailable Mayuri Thomas MD Unavailable Unavailable Mayuri Thomas MD Unavailable Unavailable Mayuri Thomas MD Unavailable Unavailable Mayuri Thomas MD Unavailable Unavailable Mayuri Thomas MD Unavailable Unavailable Mayuri Thomas MD Unavailable Unavailable Mayuri Thomas MD Unavailable Unavailable Mayuri Thomas MD Unavailable Unavailable Mayuri Thomas MD Unavailable Unavailable Mayuri Thomas MD Unavailable Unavailable Mayuri Thomas MD Unavailable Unavailable Mayuri Thomas MD Unavailable Unavailable Mayuri Thomas MD Unavailable Unavailable Mayuri Thomas MD Unavailable Unavailable Mayuri Thomas MD Unavailable Unavailable Mayuri Thomas MD Unavailable Unavailable Mayuri Thomas MD Unavailable Unavailable Mayuri Thomas MD Unavailable Unavailable Mayuri Thomas MD Unavailable Unavailable Mayuri Thomas MD Unavailable Unavailable Mayuri Thomas MD Unavailable Unavailable Mayuri Thomas MD Unavailable Unavailable Mayuri Thomas MD Unavailable Unavailable Mayuri Thomas MD Unavailable Unavailable Mayuri Thomas MD Unavailable Unavailable Mayuri Thomas MD Unavailable Unavailable Mayuri Thomas MD Unavailable Unavailable Mayuri Thomas MD Unavailable Unavailable Mayuri Thomas MD Unavailable Unavailable Mayuri Thomas MD Unavailable Unavailable Mayuri Thomas MD Unavailable Unavailable Mayuri Thomas MD Unavailable Unavailable Mayuri Thomas MD Unavailable Unavailable Mayuri Thomas MD Unavailable Unavailable Mayuri Thomas MD Unavailable Unavailable Mayuri Thomas MD Unavailable Unavailable Mayuri Thomas MD Unavailable Unavailable Mayuri Thomas MD Unavailable Unavailable Mayuri Thomas MD Unavailable Unavailable Mayuri Thomas MD Unavailable Unavailable Mayuri Thomas MD Unavailable Unavailable Mayuri Thomas MD Unavailable Unavailable Mayuri Thomas MD Unavailable Unavailable Mayuri Thomas MD Unavailable Unavailable Mayuri Thomas MD Unavailable Unavailable Mayuri Thomas MD Unavailable Unavailable Mayuri Thomas MD Unavailable Unavailable Mayuri Thomas MD Unavailable Unavailable Mayuri Thomas MD Unavailable Unavailable Mayuri Thomas MD Unavailable Unavailable Mayuri Thomas MD Unavailable Unavailable Mayuri Thomas MD Unavailable Unavailable Mayuri Thomas MD Unavailable Unavailable Mayuri Thomas MD Unavailable Unavailable Mayrui Thomas MD Unavailable Unavailable Mayuri Thomas MD Unavailable Unavailable Mayuri Thomas MD Unavailable Unavailable Mayuri Thomas MD Unavailable Unavailable Mayuri Thomas MD Unavailable Unavailable Mayuri Thomas MD Unavailable Unavailable Mayuri Thomas MD Unavailable Unavailable Mayuri Thomas MD Unavailable Unavailable Mayuri Thomas MD Unavailable Unavailable Mayuri Thomas MD Unavailable Unavailable Mayuri Thomas MD Unavailable Unavailable Mayuri Thomas MD Unavailable Unavailable Mayuri Thomas MD Unavailable Unavailable Mayuri Thomas MD Unavailable Unavailable Mayuri Thomas MD Unavailable Unavailable Mayuri Thomas MD Unavailable Unavailable Mayuri Thomas MD Unavailable Unavailable Mayuri Thomas MD Unavailable Unavailable Mayuri Thomas MD Unavailable Unavailable Mayuri Thomas MD Unavailable Unavailable Mayuri Thomas MD Unavailable Unavailable Mayuri Thomas MD Unavailable Unavailable Mayuri Thomas MD Unavailable Unavailable Chinedu MCLEAN CLIENT STRATEGIST Unavailable Unavailable WINTER, M FAHAD CLIENT STRATEGIST Unavailable Unavailable WINTER, M FAHAD CLIENT STRATEGIST Unavailable Unavailable WINTER, M FAHAD CLIENT STRATEGIST Unavailable Unavailable WINTER, M FAHAD CLIENT STRATEGIST Unavailable Unavailable WINTER, M FAHAD CLIENT STRATEGIST Unavailable Unavailable WINTER, M FAHAD CLIENT STRATEGIST Unavailable Unavailable WINTER, M FAHAD CLIENT STRATEGIST Unavailable Unavailable WINTER, M FAHAD CLIENT STRATEGIST Unavailable Unavailable WINTER, M FAHAD CLIENT STRATEGIST Unavailable Unavailable WINTER, M FAHAD CLIENT STRATEGIST Unavailable Unavailable WINTER, M FAHAD CLIENT STRATEGIST Unavailable Unavailable WINTER, M FAHAD CLIENT STRATEGIST Unavailable Unavailable WINTER, M FAHAD CLIENT STRATEGIST Unavailable Unavailable WINTER, M FAHAD CLIENT STRATEGIST Unavailable Unavailable WINTER, M FAHAD CLIENT STRATEGIST Unavailable Unavailable WINTER, M FAHAD CLIENT STRATEGIST Unavailable Unavailable WINTER, M FAHAD CLIENT STRATEGIST Unavailable Unavailable WINTER, M FAHAD CLIENT STRATEGIST Unavailable Unavailable WINTER, M FAHAD CLIENT STRATEGIST Unavailable Unavailable WINTER, M FAHAD CLIENT STRATEGIST Unavailable Unavailable WINTER, M FAHAD CLIENT STRATEGIST Unavailable Unavailable WINTER, M FAHAD CLIENT STRATEGIST Unavailable Unavailable WINTER, M FAHAD CLIENT STRATEGIST Unavailable Unavailable WINTER, M FAHAD CLIENT STRATEGIST Unavailable Unavailable WINTER, M FAHAD CLIENT STRATEGIST Unavailable Unavailable WINTER, M FAHAD CLIENT STRATEGIST Unavailable Unavailable WINTER, M FAHAD CLIENT STRATEGIST Unavailable Unavailable WINTER, M FAHAD CLIENT STRATEGIST Unavailable Unavailable WINTER, M FAHAD CLIENT STRATEGIST Unavailable Unavailable WINTER, M FAHAD CLIENT STRATEGIST Unavailable Unavailable WINTER, M FAHAD CLIENT STRATEGIST Unavailable Unavailable WINTER, M FAHAD CLIENT STRATEGIST Unavailable Unavailable Pleskach, Fani ASIC DESIGN ENGINEER Unavailable Unavailable Pleskach, Fani ASIC DESIGN ENGINEER Unavailable Unavailable Pleskach, Fani ASIC DESIGN ENGINEER Unavailable Unavailable Pleskach, Fani ASIC DESIGN ENGINEER Unavailable Unavailable Pleskach, Fani ASIC DESIGN ENGINEER Unavailable Unavailable Pleskach, Fani ASIC DESIGN ENGINEER Unavailable Unavailable Pleskach, Fani ASIC DESIGN ENGINEER Unavailable Unavailable Pleskach, Fani ASIC DESIGN ENGINEER Unavailable Unavailable Pleskach, Fani ASIC DESIGN ENGINEER Unavailable Unavailable Pleskach, Fani ASIC DESIGN ENGINEER Unavailable Unavailable Pleskach, Fani ASIC DESIGN ENGINEER Unavailable Unavailable Pleskach, Fani ASIC DESIGN ENGINEER Unavailable Unavailable Pleskach, Fani ASIC DESIGN ENGINEER Unavailable Unavailable Pleskach, Fani ASIC DESIGN ENGINEER Unavailable Unavailable Pleskach, Fani ASIC DESIGN ENGINEER Unavailable Unavailable Pleskach, Fani ASIC DESIGN ENGINEER Unavailable Unavailable Pleskach, Fani ASIC DESIGN ENGINEER Unavailable Unavailable Pleskach, Fani ASIC DESIGN ENGINEER Unavailable Unavailable Pleskach, Fani ASIC DESIGN ENGINEER Unavailable Unavailable Pleskach, Fani ASIC DESIGN ENGINEER Unavailable Unavailable Pleskach, Fani ASIC DESIGN ENGINEER Unavailable Unavailable Pleskach, Fani ASIC DESIGN ENGINEER Unavailable Unavailable Pleskach, Fani ASIC DESIGN ENGINEER Unavailable Unavailable Pleskach, Fani ASIC DESIGN ENGINEER Unavailable Unavailable Pleskach, Fani ASIC DESIGN ENGINEER Unavailable Unavailable Pleskach, Fani ASIC DESIGN ENGINEER Unavailable Unavailable Pleskach, Fani ASIC DESIGN ENGINEER Unavailable Unavailable Pleskach, Fani ASIC DESIGN ENGINEER Unavailable Unavailable Pleskach, Fani ASIC DESIGN ENGINEER Unavailable Unavailable Pleskach, Fani ASIC DESIGN ENGINEER Unavailable Unavailable Pleskach, Fani ASIC DESIGN ENGINEER Unavailable Unavailable Pleskach, Fani ASIC DESIGN ENGINEER Unavailable Unavailable Pleskach, Fani ASIC DESIGN ENGINEER Unavailable Unavailable Pleskach, Fani ASIC DESIGN ENGINEER Unavailable Unavailable Pleskach, Fani ASIC DESIGN ENGINEER Unavailable Unavailable Pleskach, Fani ASIC DESIGN ENGINEER Unavailable Unavailable Pleskach, Fani ASIC DESIGN ENGINEER Unavailable Unavailable Pleskach, Fani ASIC DESIGN ENGINEER Unavailable Unavailable Pleskach, Fani ASIC DESIGN ENGINEER Unavailable Unavailable Pleskach, Fani ASIC DESIGN ENGINEER Unavailable Unavailable Pleskach, Fani ASIC DESIGN ENGINEER Unavailable Unavailable Pleskach, Fani ASIC DESIGN ENGINEER Unavailable Unavailable Saeed, L Usha RPA Unavailable Unavailable Saeed, L Usha RPA Unavailable Unavailable Saeed, L Usha RPA Unavailable Unavailable Saeed, L Usha RPA Unavailable Unavailable Saeed, L Usha RPA Unavailable Unavailable Saeed, L Usha RPA Unavailable Unavailable Saeed, L Usha RPA Unavailable Unavailable Saeed, L Usha RPA Unavailable Unavailable Saeed, L Usha RPA Unavailable Unavailable Saeed, L Usha RPA Unavailable Unavailable Saeed, L Usha RPA Unavailable Unavailable Saeed, L Usha RPA Unavailable Unavailable Saeed, L Usha RPA Unavailable Unavailable Saeed, L Usha RPA Unavailable Unavailable Saeed, L Usha RPA Unavailable Unavailable Saeed, L Usha RPA Unavailable Unavailable Saeed, L Usha RPA Unavailable Unavailable Saeed, L Usha RPA Unavailable Unavailable Saeed, L Usha RPA Unavailable Unavailable Saeed, L Usha RPA Unavailable Unavailable Saeed, L Usha RPA Unavailable Unavailable Saeed, L Usha RPA Unavailable Unavailable Saeed, L Usha RPA Unavailable Unavailable Saeed, L Usha RPA Unavailable Unavailable Saeed, L Usha RPA Unavailable Unavailable Saeed, L Usha RPA Unavailable Unavailable Saeed, L Usha RPA Unavailable Unavailable Saeed, L Usha RPA Unavailable Unavailable Saeed, L Usha RPA Unavailable Unavailable Saeed, L Usha RPA Unavailable Unavailable Saeed, L Usha RPA Unavailable Unavailable Saeed, L Usha RPA Unavailable Unavailable Rosario LEE MD Unavailable Unavailable Rosario LEE MD Unavailable Unavailable Rosario LEE MD Unavailable Unavailable Rosario LEE MD Unavailable Unavailable CHANLIECCO, Rosario VALDIVIA MD Unavailable Unavailable CHANLIECCO, Rosario VALDIVIA MD Unavailable Unavailable CHANLIECCO, Rosario VALDIVIA MD Unavailable Unavailable CHANLIECCO, Rosario VALDIVIA MD Unavailable Unavailable CHANLIECCO, Rosario VALDIVIA MD Unavailable Unavailable CHANLIECCO, Rosario VALDIVIA MD Unavailable Unavailable CHANLIECCO, Rosario VALDIVIA MD Unavailable Unavailable Lenora, Isidoro Foley MD Unavailable Unavailable Lenora, Isidoro Foley MD Unavailable Unavailable Lenora, Isidoro Foley MD Unavailable Unavailable Lenora, Isidoro Foley MD Unavailable Unavailable Lenora, Isidoro Foley MD Unavailable Unavailable Lenora, Isidoro Foley MD Unavailable Unavailable Lenora, Isidoro Foley MD Unavailable Unavailable Lenora, Isidoro Foley MD Unavailable Unavailable Lenora, Isidoro Foley MD Unavailable Unavailable Lenora, Isidoro Foley MD Unavailable Unavailable Lenora, Isidoro Foley MD Unavailable Unavailable Lenora, Isidoro Foley MD Unavailable Unavailable Lenora, Isidoro Foley MD Unavailable Unavailable Lenora, Isidoro Foley MD Unavailable Unavailable Lenora, Isidoro Foley MD Unavailable Unavailable Lenora, Isidoro Foley MD Unavailable Unavailable Lenora, Isidoro Foley MD Unavailable Unavailable Lenora, Isidoro Foley MD Unavailable Unavailable Lenora, Isidoro Foley MD Unavailable Unavailable Lenora, Isidoro Foley MD Unavailable Unavailable Lenora, Isidoro Foley MD Unavailable Unavailable Lenora, Isidoro Foley MD Unavailable Unavailable Lenora, Isidoro Foley MD Unavailable Unavailable Lenora, Isidoro Foley MD Unavailable Unavailable Lenora, Isidoro Foley MD Unavailable Unavailable Lenora, Isidoro Foley MD Unavailable Unavailable Lenora, Isidoro Foley MD Unavailable Unavailable Lenora, Isidoro Foley MD Unavailable Unavailable Lenora, Isidoro Foley MD Unavailable Unavailable Lenora, Isidoro Foley MD Unavailable Unavailable Lenora, Isidoro Foley MD Unavailable Unavailable Lenora, Isidoro Foley MD Unavailable Unavailable Lenora, Isidoro Foley MD Unavailable Unavailable Lenora, Isidoro Foley MD Unavailable Unavailable Lenora, Isidoro Foley MD Unavailable Unavailable Lenora, Isidoro Foley MD Unavailable Unavailable Lenora, Isidoro Foley MD Unavailable Unavailable Lenora, Isidoro Foley MD Unavailable Unavailable Lenora, Isidoro Foley MD Unavailable Unavailable Lenora, Isidoro Foley MD Unavailable Unavailable Lenora, Isidoro Foley MD Unavailable Unavailable Lenora, Isidoro Foley MD Unavailable Unavailable Lenora, Isidoro Foley MD Unavailable Unavailable Lenora, Isidoro Foley MD Unavailable Unavailable Lenora, Isidoro Foley MD Unavailable Unavailable Lenora, Isidoro Foley MD Unavailable Unavailable Lenora, Isidoro Foley MD Unavailable Unavailable Lenora, Isidoro Foley MD Unavailable Unavailable Lenora, Isidoro Foley MD Unavailable Unavailable Lenora, Isidoro Foley MD Unavailable Unavailable Lenora, Isidoro Foley MD Unavailable Unavailable Lenora, Isidoro Foley MD Unavailable Unavailable Lenora, Isidoro Foley MD Unavailable Unavailable Lenora, A Alaina MD Unavailable Unavailable Lenora, A Alaina MD Unavailable Unavailable Lenora, A Alaina MD Unavailable Unavailable Lenora, A Alaina MD Unavailable Unavailable Lenora, A Alaina MD Unavailable Unavailable Lenora, A Alaina MD Unavailable Unavailable Lenora, A Alaina MD Unavailable Unavailable Lenora, A Alaina MD Unavailable Unavailable Lenora, A Alaina MD Unavailable Unavailable Lenora, A Alaina MD Unavailable Unavailable Lenora, A Alaina MD Unavailable Unavailable Lenora, A Alaina MD Unavailable Unavailable Lenora, A Alaina MD Unavailable Unavailable Lenora, A Alaina MD Unavailable Unavailable Lenora, A Alaina MD Unavailable Unavailable Lenora, A Alaina MD Unavailable Unavailable Lenora, A Alania MD Unavailable Unavailable Lenora, A Alaina MD Unavailable Unavailable Lenora, A Alaina MD Unavailable Unavailable Lenora, A Alaina MD Unavailable Unavailable Lenora, A Alaina MD Unavailable Unavailable Lenora, A Alaina MD Unavailable Unavailable Lenora, A Alaina MD Unavailable Unavailable Lenora, A Alaina MD Unavailable Unavailable Lenora, A Alaina MD Unavailable Unavailable Lenora, A Alaina MD Unavailable Unavailable Lenora, A Alaina MD Unavailable Unavailable Lenora, A Alaina MD Unavailable Unavailable Lenora, A Alaina MD Unavailable Unavailable Re-disclosure Warning The records that you are about to access may contain information from federally-assisted alcohol or drug abuse programs. If such information is present, then the following federally mandated warning applies: This information has been disclosed to you from records protected by federal confidentiality rules (42 CFR part 2). The federal rules prohibit you from making any further disclosure of this information unless further disclosure is expressly permitted by the written consent of the person to whom it pertains or as otherwise permitted by 42 CFR part 2. A general authorization for the release of medical or other information is NOT sufficient for this purpose. The Federal rules restrict any use of the information to criminally investigate or prosecute any alcohol or drug abuse patient.The records that you are about to access may contain highly sensitive health information, the redisclosure of which is protected by Article 27-F of the [place] State Public Health law. If you continue you may have access to information: Regarding HIV / AIDS; Provided by facilities licensed or operated by the [facility] Office of Mental Health; or Provided by the [facility] Office for People With Developmental Disabilities. If such information is present, then the following [facility] mandated warning applies: This information has been disclosed to you from confidential records which are protected by state law. State law prohibits you from making any further disclosure of this information without the specific written consent of the person to whom it pertains, or as otherwise permitted by law. Any unauthorized further disclosure in violation of state law may result in a fine or fci sentence or both. A general authorization for the release of medical or other information is NOT sufficient authorization for further disc losure. Allergies and Adverse Reactions Type Description Substance Reaction Status Data Source(s ) No Known Drug Allergies No Known Drug Allergies [facility] Family History Family Member Name Family Member Gender Family Member Status Date o f Status Description Data Source(s) Unknown Unknown Problem [facility] ([facility] Unknown Female Problem [facility] ([facility] ) Encounters Encounter Providers Location Date Indications Data Source(s ) Outpatient Attender: FAHAD MCLEAN NP [facility] 06/11/2021 11:00:00 AM EDT MED[facility] ([facility]) Outpatient Attender: Gee HENDRICKSONeferrer: Alaina Bond MD 06/04/2021 05:05:11 PM EDT [facility] Outpatient Attender: Jayy Dill MD [facility] 04/30/2021 09:00:00 AM EDT MED[facility] ([facility]) Outpatient Attender: Fani Cain [facility] Main Office 04/09/2021 0 2:00:00 PM EDT [facility] ([facility] Outpatient Attender: Fani Cain FNPConsultant: Fani colby [facility] 03/26/2021 07:02:00 AM EDT - 03/26/2021 08:02:00 AM EDT [facility] Outpatient Attender: Fani KRAFTP Main Office 03/07/2021 0 8:00:00 AM EDT [facility] ([facility] Emergency Attender: SKIP Guzmán MDConsultant: Fani Cain FNPConsultant: Alaina Bond MD 03/04/2021 06:09:00 P M EDT - 03/04/2021 08:35:00 PM EDT [facility] Patient discharged. Outpatient Attender: sUha Stock/Quin/Tin/Mayuri jett 02/26/2021 01:30:00 PM EDT [facility] ([facility] Outpatient Attender: Gee Osborn MDReferrer: Alaina Bond MD 01/30/2021 06:34:20 AM EDT [facility] Outpatient Attender: Sandra Yanez PAReferrer: Alaina Bond MD 12/10/2020 01:27:55 PM EDT [facility] Recurring Patient Attender: Alexandria Osborn MDReferrer: Alaina Bond MD 12/09/2020 09:09:17 AM EDT [facility] Outpatient Attender: Sandra Yanez PAReferrer: Alaina Bond MD 10/28/2020 02:37:58 PM EST [facility] Outpatient Attender: Gee Osobrn MDReferrer: Alaina Bond MD 10/25/2020 06:40:09 AM EST [facility] Outpatient Attender: DEANNA OSBORNConsultant: Alaina Barragan 10/17/2020 09:48:00 AM EST - 10/17/2020 10:48:00 AM EST [facility] Patient discharged. Outpatient Attender: Fani RDZ Main Office 10/10/2020 1 2:00:00 PM EST [facility] ([facility] Outpatient Attender: Gee Osborn MDReferrer: Alaina Bond MD 10/01/2020 05:12:14 PM EST [facility] Recurring Patient Attender: Alexandria Osborn MDReferrer: Alaina Bond MD 10/01/2020 07:38:15 AM EST [facility] Outpatient Attender: Fani KRAFTPConsultant: Alaina barnhart MD 09/30/2020 08:07:00 AM EST - 09/30/2020 09:07:00 AM [facility] Outpatient Attender: Power Thomas MDReferrer: Alaina roberts MD 09/23/2020 08:45:54 AM EST [facility] Immunizations Vaccine Date Status Description Data Source(s) This CVX code allows reporting of a vacc ination when formulation is unknown (for example, when recording a Influenza vaccination when noted on a vaccination card) 04/30/2021 09:04:00 AM EDT completed MEDEN T ([facility]) Medications Medication Brand Name Start Date Product Form Dose Route Admi nistrative Instructions Pharmacy Instructions Status Indications Reaction Description Data Source(s) atorvastatin 20 MG Oral Tablet Atorvastatin Calcium 06/11/2021 1 2:00:00 AM EDT ORAL active MEDENT ( [facility]) 24 HR metoprolol succinate 25 MG Extended Release Oral Tablet Metoprolol Succinate ER 06/11/2021 12:00:00 AM EDT ORAL active MED[facility] ([facility]) Aspirin 81 MG Chewable Tablet Aspirin 06/11/2021 12:00:00 AM EDT ORAL active [facility] ([facility]) Nitroglycerin 0.4 MG Sublingual Tablet [Nitrostat] Nitrostat 06/11/2021 12:00:00 AM EDT active MED[facility] ([facility]) Regadenoson, 0.1 MG 06/04/2021 12:00:00 AM EDT completed MEDENT ([facility]) Medication administered onsite Suprep Bowel Prep Kit Suprep Bowel Prep Kit 05/15/2021 12:00:00 AM EDT active [facility] ([facility], ) Amlodipine 5 MG Oral Tablet Amlodipine Besylate 03/07/2021 12:00:00 A M EDT active [facility] ([facility] Covid-19 vaccine, Unspecified 11/04/2020 12:00:00 AM EST completed MED[facility] ([facility]) Medication administered onsite Covid-19 vaccine, Unspecified 10/07/2020 12:00:00 AM EST completed [facility] ([facility]) Medication administered onsite Insurance Providers Payer name Policy type / Coverage type Policy ID Covered green party ID Covered green party's relationship to cerrato Policy Cerrato Plan Information WORKER'S COMP [id number] Emp [id number] WORKER'S COMP [id number] [facility] [id number] [facility] [id number] SP [id number] Formerly [facility] Employee Program J [id number] SELF [id number] [facility] EMPL[employer]EE PROGRAM [id number] SP [id number] [facility] Health Maintenance Organization (O) [id number] Self [id number] [facility] Health Maintenance Organization (O) [id number] Self [id number] [facility] Health Maintenance Organization (O) [id number] Self [id number] [facility] Health Maintenance [facility] (O) [id number] Self [id number] [facility] Health Maintenance Organization (O) [id number] Self [id number] [facility] Health Maintenance Organization (O) [id number] S elf [id number] Fed Plan Commercial [id number] Self [employer] O [id number] S [id number] Blue Cross Blue Shield P [id number] SELF [id number] [employer]UE CROSS -PHYSICIAN [id number] [facility] [place] [facility] P [id number] S [id number] [facility] [id number] SP [id number] BLUE CROSS BLUE SHIELD [facility] O/P [id number] 18 [id number] Blue Cross Blue Shield P [id number] SELF [id number] [facility] Health Maintenance Organization (O) [id number] Self [id number] Problems, Conditions, and Diagnoses Code Display Name Description Problem Type Effective Dates Data Source(s) Z8042 Family history of malignant neoplasm of prostate Family history of malignant neoplasm of prostate Diagnosis 03/26/2021 07:02:00 AM EDT [facility] R7301 Impaired fasting glucose Impaired fasting glucose Diag nosis 03/26/2021 07:02:00 AM EDT [facility] N18964 Personal history of nicotine dependence Personal history of nicotine dependence Diagnosis 03/04/2021 06:09:00 PM EDT [facility] I10 Essential (primary) hypertension Essential (primary) h ypertension Diagnosis 03/04/2021 06:09:00 PM EDT [facility] R0789 Other chest pain Other chest pain Diagnosis 03/04/2021 06 :09:00 PM EDT [facility] W10847 Unspecified rotator cuff tea r or rupture of right shoulder, not specified as traumatic Unspecified rotator cuff tear or rupture of right shoulder, not specified as traumatic Diagnosis 10/17/2020 09:48:00 AM [facility] J69894 Primary osteoarthritis, right shoulder P rimary osteoarthritis, right shoulder Diagnosis 10/17/2020 09:48:00 AM [facility] H50610 Pain in right shoulder Pain in right shoulder Diagnosi s 10/17/2020 09:48:00 AM [facility] R94.39 Abnormal results of cardiovascular funct ion studies Abnormal results of cardiovascular function studies Problem 06/11/2021 12:00:00 AM EDT M EDENT ([facility]) Z71.3 Dietary management surveillance Dietary management van veillance Problem 06/11/2021 12:00:00 AM EDT MED[facility] ([facility] I10 Essential hypertension Essential hypertension Problem 04/30/2021 12:00:00 AM EDT MED[facility] ([facility] E78.2 Mixed hyperlipidemia Mixed hyperlipidemia Problem 04/30/2021 12:00:00 AM EDT MED[facility] ([facility]) R06.02 Dyspnea Dyspnea Problem 04/30/2021 12:00:00 AM ED T MED[facility] ([facility]) R07.9 Chest pain Chest pain Problem 04/30/2021 12:00:00 AM ED T MED[facility] ([facility]) [id number] Essential hypertension Essential hypertension Problem 02/26/2021 12:00:00 AM EDT MED[facility] ([facility], ) Surgeries/Procedures Procedure Description Date Indications Data Source(s) OFFICE OUTPATIENT VISIT 25 MINUTES 06/11/2021 12:00:00 AM EDT MED[facility] ([facility]) Spect Image, Multiple,W/Ejection Fraction And Wall Motion 06/04/2021 12:00:00 AM EDT MED[facility] ([facility]) Cardiovascular Stress Test W/Interpretation & Report 06/04/2021 12:00:00 AM EDT MED[facility] ([facility]ter [facility]) Complete ECHO 06/04/2021 12:00:00 AM EDT MED[facility] ([facility]) Complete ECHO 06/04/2021 12:00:00 AM EDT MED[facility] ([facility]) OFFICE OUTPATIENT NEW 45 MINUTES 04/30/2021 12:00:00 A M EDT MED[facility] ([facility]) OFFICE OUTPATIENT VISIT 25 MINUTES 04/09/2021 12:00:00 AM EDT [facility] ([facility] OFFICE OUTPATIENT VISIT 25 MINUTES 03/07/2021 12:00:00 AM EDT [facility] ([facility] OFFICE OUTPATIENT NEW 30 MINUTES 02/26/2021 12:00:00 A M EDT MED[facility] ([facility], ) OFFICE OUTPATIENT VISIT 15 MINUTES 10/10/2020 12:00:00 AM EST [facility] ([facility] PERIODIC PREVENTIVE MED EST PATIENT 40-64YRS 12:00:00 AM EST [facility] ([facility] Results ID Date Data Source [id number] 07/05/2021 10:55:00 AM EDT [facility] ([facility] Name Value Range Interpretation Code Description Data Anita rce(s) Supporting Document(s) Coronavirus 2019 Nasopharygeal Laboratory test result [facility] ([facility] ASSAY INFORMATION: Real Time RT-PCR NOTE: The COVID-19 assay has been cleared by the U.S. Food and Drug Administration under the Emergency Use Authorization (EUA). [facility] and [facility] are designated as high complexity laboratories by the Clinical Laboratory Improvement Amendments of 1988(CLIA) and are qualified to perform this test. Not Detected ID Date Data Source [id number] 07/05/2021 10:55:00 AM EDT MED[facility] ([facility], ) Name Value Range Interpretation Code Description Data Anita rce(s) Supporting Document(s) Laboratory test finding (navigational concept) Laboratory test result MEDENT ([facility], ) ASSAY INFORMATION: Real Time RT-PCR NOTE: The COVID-19 assay has been cleared by the U.S. Food and Drug Administration under the Emergency Use Authorization (EUA). [facility] and [facility] are designated as high complexity laboratories by the Clinical Laboratory Improvement Amendments of 1988(CLIA) and are qualified to perform this test. Not Detected ID Date Data Source [id number] 06/04/2021 05:05:11 PM EDT [facility] PCName: Remi TalDOB: 1965Provider: Gee OsbornDOS: 06/03/2021 Reason For VisitRemi Parada is here today for right shoulder. Remi had his second Covid vaccine on 10/31/20. Remi Parada is an established patient here for follow up. Pain is 7/10, aches, constant, posterior pain. no NSAIDs. no physical therapy. no sling. Patient is working at this time at regular duty. History of Present IllnessCHIEF COMPLAINTFollow-up evaluation of right shoulder.HISTORY OF PRESENT ILLNESSThe patient is a 55-year-old male who is here for follow-up evaluation of right shoulder. This is a chronic problem that is exacerbated. He is hoping to get a cortisone injection today. He rates the pain at 7/10. He has an ache, soreness, constant, posterior based pain. He denies any physical therapy, NSAIDs, or sling. He has difficulty performing ADLs because of limited range of motion. He had a cortisone shot performed on 12/09/2020 at [facility], which helped. He is known to have primary arthritis.The patient states he has a 5-1/2 weeks vacation for hunting season and is worried he would not be able to preciado. He states he heard a pop in the shoulder while doing a golf swing. AssessmentASSESSMENTRight shoulder primary osteoarthritis, chronic, exacerbated. Maryam and I discussed his right shoulder. He is in a flare-up. We discussed options. He wants to be able to preciado, so we are going to give him a glenohumeral cortisone injection today to get him through hopefully the fall. We did discuss briefly surgery for the shoulder ranging from an arthroscopic clean out to a replacement. We will see how he does and go from there with the injection. The patient agrees with this plan.I advised the patient that steroid injections are frequently used to provide relief from musculoskeletal pain and to aid in the diagnosis of musculoskeletal problems. This injection offers a variety of benefits and various potential risks associated with the medication administered during the injection. I informed the patient that alternatives to this injection include no treatment, use of rehabilitation and exercise, use of a different medication (oral and injectable), and surgical intervention, when appropriate. I advised the patient that the risks associated with this injection include: an allergic reaction to the medication, pain at the injection site, possible infection of the injection site, facial flushing and skin changes, temporary increase in blood sugar, tendon, muscle or nerve injury, avascular necrosis, and that there may actually not be a beneficial effect at all. Having discussed benefits, alternatives, and potential risks to the injection, the patient elected to proceed with the procedure.PROCEDUREIndications: Right shoulder painProcedure: Right shoulder glenohumeral joint cortisone injectionDescription: Under sterile conditions, 6 mL of 1% lidocaine and 80 mg of Depo-Medrol were injected in the right shoulder without complication. The patient tolerated the procedure well. There was no injectable waste. Scribed by Fortino on 06/04/2021 at 02:57 PM for Gee Osborn Signatures Electronically signed by : Roxy Camarena MA; Jun 04 2021 2:57PM EST (Author) Electronically signed by : Gee Osborn M.D.; Jun 04 2021 5:05PM EST Name Value Range Interpretation Code Description Data Anita e(s) Supporting Document(s) ID Date Data Source [id number] 03/26/2021 09:15:00 AM EDT [facility] ([facility] Name Value Range Interpretation Code Description Data [facility](s) Supporting Document(s) PSA - Diagnostic 1.15 ng/mL 0.00-4.00 [facility] ( [facility] \\BLDo\\PSA INTERPRETATION\\BLDx\\ The PSA assay should not be used alone for a screening test or diagnosis for presence or absence of malignant disease. Predictions of disease recurrence should not be based solely on values obtained from serial patient serum values. The PSA result was determined by "[employer]", on the [employer] DELVIS 6000. Values obtained with different assay methods or kits cannot be used interchangeably. ID Date Data Source [id number] 03/26/2021 09:15:00 AM EDT [facility] ([facility] Name Value Range Interpretation Code Description Data [facility](s) Supporting Document(s) Creat Ur 261.9 mg/dL 0.0-30.0 [facility] ([facility] MA/Creat Ratio 1.87 MCG/MG 0.01-30.00 [facility] ([facility] The [place] [employer] states that Microalbuminemia is present if the Microalbumin/Creatinine ratio exceeds 30 mcg/mg. The threshold for Clinical Albuminuria is reached at 300 mcg/mg. The classification of a patient should be based upon at least 2 or 3 abnormal results on specimens collected within a 3 to 6 month timeframe. Microalbumin Laboratory test result 0.00-0.00 [facility] ([facility] ID Date Data Source [id number] 03/26/2021 09:15:00 AM EDT [facility] ([facility] Name Value Range Interpretation Code Description Data [facility](s) Supporting Document(s) Hemoglobin A1c/Hemoglobin.total in Blood 5.4 % 4.4-6.1 [facility] ([facility] {A1] {HB] ID Date Data Source [id number] 03/26/2021 08:54:00 AM EDT [facility] Name Value Range Interpretation Code Description Data Anita rce(s) Supporting Document(s) Prostate specific Ag [Mass/volume] in Serum or Plasma 1.15 ng/mL 0.00 - 4.00 [facility] \\BLDo\\PSA INTERPRETA TION\\BLDx\\ The PSA assay should not be used alone for a screening test or diagnosis for presence or absence of malignant disease. Predictions of disease recurrence should not be based solely on values obtained from serial patient serum values. The PSA result was determined by "[employer]", on the [employer] DELVIS 6000. Values obtained with different assay methods or kits cannot be used interchangeably. ID Date Data Source [id number] 03/26/2021 08:42:00 AM EDT [facility] Name Value Range Interpretation Code Description Data Anita rce(s) Supporting Document(s) Hemoglobin A1c/Hemoglobin.total in Blood 5.4 % 4.4 - 6.1 [facility] {A1]{HB] ID Date Data Source [id number] 03/26/2021 08:33:00 AM EDT [facility] Name Value Range Interpretation Code Description Data Anita rce(s) Supporting Document(s) CREAT UR 261.9 MG/DL 0.0 - 30.0 H [facility] pital MICROALBUMIN <12.00 MG/L 0.00 - 0.00 H [facility] MA/CREAT RATIO 1.87 MCG/MG 0.01 - 30.00 [facility] [employer] st ates that Microalbuminemia is present if the Microalbumin/Creatinine ratio exceeds 30 mcg/mg. The threshold for Clinical Albuminuria is reached at 300 mcg/mg. The classification of a patient should be based upon at least 2 or 3 abnormal results on specimens collected within a 3 to 6 month timeframe. ID Date Data Source [id number] 03/05/2021 11:22:00 AM EDT [facility] [address] [place] [address] PHONE: [phone] FAX: [phone] Name .................. : TAL Che Acct Number.................. : [id number] ROOM. ................. : VT-07 MR Number ................... : [id number] Stay type ............. : E/R Discharge Date......... ... : 03/04/21 Admit Date ... ...... : 03/04/21 Admit Phys .................... : [facility] Date of ....... : 1965 Family Phys ................... : [email or web address], Phone .................. : [phone] Age ................................ : 55 Film# .................. .:[id number] Sex ................................. : M Unsigned transcriptions are preliminary reports and do not represent a medical or legal document CHEST PORTABLE [id number] COMPLETE:03/04/21 19:17 [id number] Reason(s): Chest Pain PORTABLE CHEST X-RAY: INDICATION: Chest pain. FINDINGS: The cardiac and mediastinal silhouettes appear normal and the lungs are clear. The bones and soft tissues are normal. The upper abdomen is unremarkable. IMPRESSION: No acute disease identifiable. Electronically Reviewed and Signed By Jourdan Palencia M.D. , 03/05/21 11:22, [facility] Transcribe Initials: BENY , Transcribe Date: 03/05/21 01:50, Dictation Date: Copy for: DOMINIQUE ABEL via fax Copy for: EMERGENCY DEPT via modem Copy for: 710 MED REC DISCHARGED Page 1 of 1 Name Value Range Interpretation Code Description Data Anita rce(s) Supporting Document(s) ID Date Data Source [id number] 03/05/2021 07:45:00 [place] [address] RESPIRATORY CARE REPORT ==== ---------NAME------- NUMBER SEX AGE ADMIT DISC. XRAY# F/C TYPEFOX REMI Che [id number] M 55 03/04/21 03/04/21 [id number] BB E/R DATE OF : 1965 M/R# [id number] #: [id number] VT-07 LOCATION: EMERGENCY DEPT EKG [id number] COMPLE TE:03/05/21 05:26 AJP [id number] PHYSICIAN: JESUS AMEZQUITA Name Value Range Interpretation Code Description Data Anita rce(s) Supporting Document(s) ID Date Data Source [id number] 03/04/2021 06:09:00 PM EDT [facility] 1 OrderSheet [facility] Emergency Department [address] [place] [address] Phone #: ext- [phone] 03/04/2021 18:07 Patient: REMI PARADA Sex: M : 1965 Age: 55yWEIGHT:90.7 kg (S) HEIGHT:70 inches (S) BMI:28.7ALLERGIES: No Known Drug AllergyCHIEF COMPLAINT: chest painDIAGNOSIS: Atypical chest pain, Hypertensive disorderLAB ORDERSOrder Description Priority Entered Acknowledged InitialedCBC w Diff STAT 19:17 03/04/2021 19:17 Harini Arroyo RN PA;CMP STAT 19:17 03/04/2021 19:17 Harini Arroyo RN PA;PT/PTT STAT 19:17 03/04/2021 19:17 Harini Arroyo RN PA;Troponin-T STAT 19:17 03/04/2021 19:17 Harini Arroyo RN PA;Urinalysis (Clean STAT 19:17 03/04/2021 20:22 Isabela Manzo) Hira Guerra R.N. PA;DIAGNOSTIC STUDY ORDERSOrder Description Priority Entered Acknowledged InitialedChest Portable 1 STAT 19:17 03/04/2021 19:17 Poli Arroyo RN(Oxygen?(No)) PA; Reason for Study: Chest PainMEDICATION/IV/DRIP/FLUID ORDERSOrder Description Priority Entered Acknowledged InitialedAspirin PO 19:17 03/04/2021 19:22 DorisChewable 81 mg Hira Arroyo RN324 mg PA;NitroGLYCERIN 19:17 03/04/2021 19:22 DorisTopical Ointment Hira Arroyo RN1 in. PA; 2 OrderSheet [facility] Emergency Department [address] [place] [address] Phone #: ext- [phone] 03/04/2021 18:07 Patient: REMI PARADA Sex: M : 1965 Age: 55yAtivan PO 1 mg 19:17 03/04/2021 19:22 Harini Arroyo RN PA;GENERAL ORDERSOrder Description Priority Entered Acknowledged Initial edEKG 19:17 03/04/2021 19:17 Harini Arroyo RN PA;Blood Pressure 19:17 03/04/2021 19:17 BetitoisMonitor Hira MALONE;Reworker 19:17 03/04/2021 19:17 Harini(continuous) Hira MALONE;Pulse oximeter 19:17 03/04/2021 19:17 Harini(Continuous) Hira MALONE;Vitals 19:17 03/04/2021 19:17 Harini MALONE;[Electronically signed by Mari Manzo R.N. (20:35 03/04/2021)][Electronically signed by Hira Amezquita (23:35 03/04/2021)][Electronically locked by Mari Manzo R.N. (20:35 03/04/2021)] Name Value Range Interpretation Code Description Data Anita rce(s) Supporting Document(s) ID Date Data Source [id number] 03/04/2021 06:09:00 PM EDT [facility] 1 Medication Reconciliation Report [facility] Emergency Department [address] [place] [address] Phone #: ext- [phone] 03/04/2021 18:07 Patient: REMI PARADA Sex: M : 1965 Age: 55yWeight: 90.7 kgHeight/Length: 70 in.BMI: 28.7ALLERGIES: No Known Drug AllergyThe patient's Home Medications are listed below:CONTINUE TAKING THE FOLLOWING MEDICATIONS: Losartan Potassium-HCTZ Oral (100-25 mg), daily Primidone Oral (50 mg), dailyThe source(s) of the original Home Medication information:Not obtained.The following Medications were given to the patient in the Emergency Department:ASPIRIN CHEWABLE 81 MG [PO] PO 324 mg, administered: 19:03/04/2021NITROGLYCERIN [TOPICAL OINTMENT] Topical 1 in., administered: :03/04/2021tivan [PO] PO 1 mg, administered: :03/04/2021The following Medications were prescribed to the patient:None. Name Value Range Interpretation Code Description Data Anita rce(s) Supporting Document(s) ID Date Data Source [id number] 03/04/2021 06:09:00 PM EDT [place] [address] Medication Administration Record [facility] Emergency Department [address] [place] [address] Phone #: ext- [phone] 03/04/2021 18:07 Patient: REMI PARADA Sex: M : 1965 Age: 55yWeight: 90.7 kgHeight/Length: 70 inBMI: 28.7ALLERGIES: No Known Drug Allergy Date/Time Medication Administered Medication OrderedGiven ASPIRIN CHEWABLE 81 MG [PO] Aspirin PO Chewable 81 mg 76400:03/04/2021 Dose: 324 mg PO Pola Arroyo RNGiven NITROGLYCERIN [TOPICAL OINTMENT] NitroGLYCERIN Lxrkznr09:03/04/2021 Dose: 1 in. Topical Ointment 1 in.Harini Arroyo RNGiven ATIVAN [PO] (LORAZEPAM) Ativan PO 1 mg19:03/04/2021 Dose: 1 mg Saqib Arroyo RN Name Value Range Interpretation Code Description Data Anita rce(s) Supporting Document(s) ID Date Data Source [id number] 03/04/2021 06:09:00 PM EDT [facility] 1 General Instructions [facility] Emergency Department [address] [place] [address] Phone #: ext- [phone] 03/04/2021 18:07 Patient: REIM PARADA [facility]#: [id number] Sex: Chinedu : 1965 Age: 55yAtypical chest painUncontrolled essential hypertension.INSTRUCTIONSWarnings: Further evaluation is necessary. It is very important to follow up with a healthcare provider.GENERAL WARNINGS: Return or contact your physician immediately if your condition worsens orchanges unexpectedly, if not improving as expected, or if other problems arise. SPECIFICALLY, return ifyou develop chest pain, difficulty breathing, a fluttering sensation in your chest, lighthe adedness, fainting,extreme fatigue or sudden sweating.Your Current Medications: Your current home medications have been reviewed.CONTINUE TAKING THE FOLLOWING MEDICATIONS:Losartan Potassium-HCTZ Oral : Tablet 100-25 mg, daily.Primidone Oral : Tablet 50 mg, daily.Follow-up:Follow up with your doctor tomorrow. Reason for referral: evaluation and treatment. Summary of careprovided to patient.Understanding of the discharge instructions verbalized by patient. ADDITIONAL INFORMATIONNoncardiac Chest Pain 2 General Instructions [facility] Emergency Department [address] [place] [address] Phone #: ext- [phone] 03/04/2021 18:07 [id number] Sex[facility] Ch[facility] : 1965 Age: 55yBased on your visit today, the healthcare provider doesn't know what is causing your chest pain. Inmost cases, people who come to the emergency room with chest pain don't have a problem with theirheart. Instead, the pain is caused by other conditions. It's important for the healthcare team to be sureyou are not having a life-threatening cause for chest pain such as: Heart attack Blood clot in the lungs Collapsed lung Ruptured esophagus Tearing of the aortaOnce these major causes have been ruled out, you may have further evaluation for nonheart causesof chest pain. These may be problems with the lungs, muscles, bones, digestive tract, nerves, ormental health. They include: Inflammation around the lungs (pleurisy) Collapsed lung (pneumothorax) Fluid around the lungs (pleural effusion) Lung cancer (a rare cause of chest pain) Inflamed cartilage between the ribs (costochondritis) Fibromyalgia Rheumatoid arthritis 3 General Instructions [facility] Emergency Department [address] [place] [address] Phone #: ext- [phone] 03/04/2021 18:07 Patient: REMI PARADA Sex: M : 1965 Age: 55y Chest wall strain Reflux Stomach ulcer Spasms of the esophagus Gall stones Gallbladder inflammation Panic or anxiety attacks Emotional distressYour condition doesn't seem serious. And your pain doesn't seem to be coming from your heart. Butsometimes the signs of a serious problem take more time to appear. Watch for the warning signslisted below.Home careFollow these guidelines when caring for yourself at home: Rest today and don't do any strenuous activity. Take any prescribed medicine as directed.Follow-up careFollow up with your healthcare provider, or as advised, if you don't start to feel better in 24 hours.Call [phone] if any of these occur: A change in the type of pain: if it feels different, becomes more severe, lasts longer, or begins to spread into your shoulder, arm, neck, jaw or back Shortness of breath or increased pain with breathing Weakness, dizziness, or fainting Rapid heart beat Crushing sensation in your chestWhen to seek medical advice 4 General Instructions [facility] Emergency Department [address] [place] [address] Phone #: ext- [phone] 03/04/2021 18:07 [id number] Sex: Chinedu : 1965 Age: 55yCall your healthcare provider right away if any of these occur: Cough with dark colored sputum (phlegm) or blood Fever of 100.4F (38C) or higher, or as directed by your healthcare provider Swelling, pain or redness in one leg [id number] [employer]. [address] [place] [address]. All rights reserved. This information is not intended as asubstitute for professional medical care. Always follow your healthcare professional's instructions.Established High Blood PressureHigh blood pressure (hypertension) is a long-term (chronic) disease. Often healthcare providers don'tknow what causes it. But it can be caused by certain health conditions and medicines.If you have high blood pressure, you may not have any symptoms. If you do have symptoms, theymay include: Headache Dizziness Changes in your vision Chest pain Shortness of breathBut even without symptoms, high blood pressure that's not treated raises your risk for heart attack,heart failure, kidney disease, and stroke. High blood pressure is a serious health risk and shouldn't beignored.Blood pressure measurements are given as 2 numbers. Systolic blood pressure is the upper number.This is the pressure when the heart contracts. Diastolic blood pressure is the lower number. This isthe pressure when the heart relaxes between beats. You will see your blood pressure readingswritten together. For example, a person with a systolic pressure of 118 and a diastolic pressure of 78will have 118/78 written in the medical record. 5 General Instructions [facility] Emergency Department [address] [place] [address] Phone #: ext- [phone] 03/04/2021 18:07 Patient: REMI PARADA [facility]#: [id number] Sex: Chinedu : 1965 Age: 55yBlood pressure is classified as normal, raised (elevated) or stage 1 or stage 2 high blood pressure: Normal blood pressure. Systolic of less than 120 and diastolic of less than 80 (120/80). Elevated blood pressure. Systolic of 120 to 129 and diastolic less than 80. Stage 1 high blood pressure. Systolic is 130 to 139 or diastolic between 80 to 89. Stage 2 high blood pressure. Systolic is 140 or higher or the diastolic is 90 or higher.Home careIf you have high blood pressure, follow these home care guidelines to help lower your blood pressure.If you are taking medicines for high blood pressure, these methods may reduce or end your need formedicines in the future. Start a weight-loss program if you are overweight. Cut back on how much salt you get in your diet. Here's how to do this: o Don't eat foods that have a lot of salt. These include olives, pickles, smoked meats, and salted potato chips. o Don't add salt to your food at the table. o Use only small amounts of salt when cooking. Start an exercise program. Talk with your healthcare provider about the type of exercise program that would be best for you. It doesn't have to be hard. Even brisk walking for 20 minutes 3 times a week is a good form of exercise. Don't take medicines that stimulate the heart. This includes many mxpc-cal-bmaogds cold and sinus decongestant pills and sprays, as well as diet pills. Check the warnings about high blood pressure on the label. Before buying any vwep-xqo-xnsykyr medicines or supplements, always ask the pharmacist about the product's possible interaction with your high blood pressure and your high blood pressure medicines. Stimulants such as amphetamine or cocaine could be deadly for someone with high blood pressure. Never take these. Limit how much caffeine you get in your diet. Switch to caffeine-free products. Stop smoking. If you are a long-time smoker, this can be hard. Talk with your [facility] provider about medicines and nicotine replacement options to help you. Also join a stop-smoking program . This makes it more likely that you will quit for good. Learn how to handle stress. This is an important part of any program to lower blood pressure. Learn about relaxation methods such as meditation, yoga, or biofeedback. 6 General Instructions [facility] Emergency Department [address] [place] [address] Phone #: ext- [phone] 03/04/2021 18:07 [id number] Sex[facility] M : 1965 Age: 55y If your provider prescribed medicines, take them exactly as directed. Missing doses may cause your blood pressure get out of control. If you miss a dose, check with your healthcare provider or pharmacist about what to do. Think about buying an automatic blood pressure machine to check your blood pressure at home. Ask your provider for a recommendation. You can get one of these at most pharmacies.Using a home blood pressure monitorThe [place] [employer] Association advises the following guidelines for home blood pressure monitoring: Don't smoke or drink coffee for 30 minutes before taking your blood pressure. Go to the bathroom before the test. Relax for 5 minutes before taking the measurement. Sit with your back supported (don't sit on a couch or soft chair). Keep your feet on the floor uncrossed. Place your arm on a solid flat surface (such as a table) with the upper part of the arm at heart level. Place the middle of the cuff directly above the bend of the elbow. Check the monitor's instruction manual for an illustration. Take multiple readings. When you measure, take 2 to 3 readings one minute apart and record all of the results. Take your blood pressure at the same time every day, or as your healthcare provider advises. Record the date, time, and blood pressure reading. Take the record with you to your next healthcare appointment. If your blood pressure monitor has a built-in memory, just take the monitor with you to your next appointment. Call your provider if you have several high readings. Don't be frightened by one high blood pressure reading. But if you get a few high readings, check in with your healthcare provider.Follow-up careYou will need to see your healthcare provider regularly. This is to check your blood pressure and tomake changes to your medicines. Make a follow-up appointment as directed. Bring the record of yourhome blood pressure readings to the appointment.Call [phone] you have any of these: Blood pressure of 180/120 or higher 7 General Instructions [facility] Emergency Department [address] [place] [address] Phone #: ext- [phone] 03/04/2021 18:07 Patient: REMI PARADA Sex: M : 1965 Age: 55y Chest pain or shortness of breath Weakness of an arm or leg or one side of the face Problems speaking or seeingWhen to get medical adviceCall your healthcare provider right away if any of these occur: Severe headache Throbbing or rushing sound in the ears Nosebleed Sudden severe pain in your belly (abdomen) Extreme drowsiness, confusion, or fainting Dizziness or spinning feeling (vertigo) [id number] [employer] [place] [address]. All rights reserved. This information is not intended as asubstitute for professional medical care. Always follow your healthcare professional's instruct ions. You have been given the following additional information: Chest Pain, Noncardiac Hypertension, Established(Electronically signed by KIRA Carreno 03/04/2021 23:35) Name Value Range Interpretation Code Description Data Anita rce(s) Supporting Document(s) ID Date Data Source [id number] 03/04/2021 06:09:00 PM EDT [facility] 1 Clinical Report - Nurses [facility] Emergency Department [address] [place] [address] Phone #: ext- [phone] 03/04/2021 18:07 Patient: REMI PARADA Sex: M : 1965 Age: 55yTRIAGEArrived by private vehicle. Historian: patient. Unaccompanied. ( 5pm blood pressure 174/108).Acuity: LEVEL 4.Chief Complaint: (hypertension).Alert.This started today.Treatment PEWTER FINISHER:None.SEPSIS SCREEN: SIRS SCREEN NEGATIVE. SEPSIS SCREEN NEGATIVE. No suspected or confirmedsigns of infection present. --18:57 03/04/21 Angela Hannah R.N.18:54 03/04/21. BP: 142/98. MAP: 112. HR: 67. RR: 18. O2 saturation: 100%. Temp: 97.8 F. Pain levelnow: 0/10. --18:57 03/04/21 Angela Hannah R.N.Weight: 90.7 kg stated. Height/Length: 70 inches Per Patient. BMI: 28.7. --18:53 03/04/21 Angela Hannah R.N.MedicationsLosartan Potassium-HCTZ Oral (Tablet 100-25 mg), daily. --18:54 03/04/21 Angela Hannah R.N. Primidone Oral (Tablet 50 mg), daily. --18:55 03/04/21 Angela Hannah R.N.AllergiesNo Known Drug Allergy. --18:54 03/04/21 Angela Hannah R.N.PROBLEMS:Hypertension. --18:55 03/04/21 Angela Hannah R.N.ADDITIONAL HICKEY RGERIES:Foot surgery x 9.Hip Surgery.Knee Surgery.Nerve stimulator in back. --18:55 03/04/21 Angela Hannah R.N.HistoryPAST MEDICAL HX: Immunizations: up-to-date.SOCIAL HX: Never smoker. Regular alcohol use. No drug use. He was offered HIV testing but declinedand hepatitis C testing but declined. He has not traveled outside the [place] 2 Clinical Report - Nurses [facility] Emergency Department [address] [place] [address] Phone #: ext- [phone] 03/04/2021 18:07 Patient: REMI PARADA Sex: M : 1965 Age: 55y Infectious disease exposure: No infectious disease exposure. The patient was not exposed to Coronavirus. Patient is not a known carrier of tuberculosis, hepatitis, HIV, MRSA or VRE. Patient is not a known carrier of CRE. SELF HARM ASSESSMENT: Self harm assessment was performed. The patient answered "no" to the question(s) "Have you recently felt down, depressed, or hopeless?", "Do you have thoughts of harming or killing yourself?", "Do you have a plan for harming or killing yourself?", "Have you recently had thoughts about harming or killing others?", "Do you have any dangerous items in your possession?", "Have you noticed less interest or pleasure in doing things?", "Are you here because you tried to hurt yourself?" and "Have you ever tried to hurt yourself before today?". ABUSE ASSESSMENT: Abuse assessment. Abuse denied. No suspicion of abuse. No report of abuse. NUTRITIONAL RISK ASSESSMENT: The nutritional risk assessment revealed no deficiencies. FUNCTIONAL ASSESSMENT: Functional assessment: no impairments noted. LEARNING NEEDS ASSESSMENT: The learning needs assessment revealed no barriers. FALL RISK ASSESSMENT: Fall risk assessment completed. No risk factors identified. SKIN INTEGRITY ASSESSMENT: Skin integrity risk assessment completed. No skin integrity risk identified. --18:57 03/04/21 Angela Hannah R.N. Interventions Identification band on patient. To treatment room. --18:57 03/04/21 Angela Hannah R.N.PHYSICAL ASSESSMENTGENERAL / NEURO / PSYCH: Alert. Oriented X 4.HEENT: No facial asymmetry noted. Mucous membranes are pink.RESPIRATORY: Respirations not labored. Chest nontender. Breath sounds within normal limits.CVS: Normal sinus rhythm noted. Capillary refill less than 2 seconds. Pulses within normal limits.GI / : Abdomen soft and nontender and normal bowel sounds.SKIN: Skin is warm and dry. --18:58 03/04/21 Angela Hannah R.N. NURSING PROGRESS NOTESPatient gowned. Reassurance given. Two patient identifiers checked. Call light placed in reach. Siderails up x 2. Bed placed in lowest position. Brakes of bed on. Patient ready for evaluation. --18:5803/04/21 Angela Hannah R.N. 19:03/04/2021 ASPIRIN CHEWABLE 81 MG PO 324 mg given. Allergies verified and confirmed 5 rights. Information reviewed with patient including reason for taking this medication. Verbalizes understanding. --:03/04/21 Harini Arroyo RN 3 Clinical Report - Nurses [facility] Emergency Department [address] [place] [address] Phone #: ext- [phone] 03/04/2021 18:07 Patient: REMI PARADA Sex: M : 1965 Age: 55y 19:03/04/2021 NITROGLYCERIN Topical 1 inch given. Applied to the left chest. Allergies verified and confirmed 5 rights. Information reviewed with patient including reason for taking this medication. Verbalizes understanding. --:03/04/21 Harini Arroyo RN 19:03/04/2021 Ativan (LORazepam) PO 1 mg given. Allergies verified and confirmed 5 rights. Information reviewed with patient including reason for taking this medication and sedative warning. Verbalizes understanding. --:03/04/21 Harini Arroyo RN EKG time: (19:25 03/04/2021). EKG was ordered, performed by a nurse and shown to the PA. --20:16 03/04/21 Harini Arroyo RN.DISPOSITION / DISCHARGE Condition at departure: stable. --20:29 03/04/21 Edith Wilkins R.N. 20:28 03/04/21. BP: 148/88. MAP: 108. HR: 64. RR: 18. O2 saturation: 98%. Temp: 98.1 F. Pain level now: 0/10. --20:29 03/04/21 Edith Wilkins R.N. Condition at departure: improved and stable. No learning barriers present. Discharge instructions provided and reviewed with the patient. Patient verbalized understanding. Written instructions provided in Chinese. ( Instructed to follow up with PCP tomorrow). The patient was discharged by the physician biology research assistant. He was discharged home and accompanied by family. He left ambulatory and via private vehicle. Family member driving. --20:35 03/04/21 Mari Manzo R.N.Locked/Released at 03/04/2021 20:35 by Mari Manzo R.N. Name Value Range Interpretation Code Description Data Anita rce(s) Supporting Document(s) ID Date Data Source [id number] 03/04/2021 06:09:00 PM EDT [facility] 1 Clinical Report - Physicians/Mid Levels [facility] Emergency Department [address] [place] [address] Phone #: ext- [phone] 03/04/2021 18:07 [id number] Sex[facility] : 1965 Age: 55y Time Seen: 19:05 03/04/2021. Arrived- By private vehicle. Historian- patient.HISTORY OF PRESENT ILLNESS Chief Complaint: CHEST PAIN. High Blood Pressure. This started today pt has been keeping a log of his blood pressure the past few days, today had 15 minutes of chest pain after work and is still present. It was abrupt in onset and has been intermittent. Onset during rest. It is described as sharp and "pain" and it is described as located in the left chest area. At its maximum, severity described as moderate. When seen in the E.D., it was gone. No nausea, vomiting, difficulty breathing or diaphoresis. Similar symptoms previously. Patient has had similar symptoms several times. Recent medical care: The patient was seen recently at another facility in a clinic.REVIEW OF SYSTEMSNo fever, chills, cough, pedal edema or calf pain. No fainting episodes, headache, sore throat, blurredvision or abdominal pain. No black stools, difficulty with urination, skin rash, enlarged lymph nodes or jointpain. No bloody stools.PAST HISTORYProblems:Hypertension. Additional Surgeries: Foot surgery x 9. Hip Surgery. Knee Surgery. Nerve stimulator in back. Medications: Primidone Oral (Tablet 50 mg), daily. Losartan Potassium- HCTZ Oral (Tablet 100-25 mg), daily. Allergies: No Known Drug Allergy.SOCIAL HISTORYFormer smoker. Alcohol use; consumes two beers a day.PHYSICAL EXAMVital Signs: 03/04/2021 18:54 BP: 142/98. MAP: 112. HR: 67. RR: 18. O2 saturation: 100%. Temp: 97.8F. Pain level now: 0/10. Have been reviewed as abnormal. Hypertensive. Oxygen saturation normal. 2 Clinical Report - Physicians/Mid Levels [facility] Emergency Department [address] [place] [address] Phone #: ext- [phone] 03/04/2021 18:07 [id number] Sex: Chinedu : 1965 Age: 55y Appearance: Alert. Oriented X3. No acute distress. Eyes: Pupils equal, round and reactive to light. Eyes normal inspection. ENT: Ears normal. Nose normal. Pharynx normal. Neck: Normal inspection. CVS: Normal heart rate and rhythm. Heart sounds normal. Respiratory: No respiratory distress. Breath sounds normal. Chest nontender. Abdomen: Soft and nontender. Bowel sounds normal. No organomegaly. No mass. Back: Normal external inspection. Skin: Skin warm and dry. Normal skin color. No rash. Normal skin turgor. Extremities: Extremities exhibit normal ROM. Neuro: Oriented X 3.LABS, X-RAYS, AND EKGChest X-ray: No acute disease. Views: PA and lateral. The X-rays were interpreted by the radiologistand contemporaneously by me. Interpretation time: 20:17 03/04/2021.Laboratory Tests: Laboratory tests have been ordered, with results reviewed and considered in themedical decision making process. CBC w Diff: (MARCIA: 03/04/2021 19:22) ( MsgRcvd 03/04/2021 19:34) Final results Test Result Flag Units (Reference) CBC W/AUTOMATED DIFF COMPLETE BLOOD COUNT WBC 6.8 10/uL (4.2 - 11.0) RBC 4.85 10/uL (4.50 - 6.30) HEMOGLOBIN 15.5 g/dL (14.0 - 16.0) HEMATOCRIT 44.3 % (41.0 - 51.0) MCV 91.3 fL (80.0 - 94.0) MCH 32.0 pg (27.0 - 34.0) MCHC 35.0 g/dL (31.0 - 36.0) RDW 11.9 % (11.5 - 14.8) PLATELETS 241 10/uL (150 - 450) MPV 9.3 fL (7.4 - 10.4) NEUT 50.9 % (37.0 - 80.0) LYMPH 34.6 % (25.0 - 40.0) MONO 9.7 H % (3.0 - 8.0) EOS 3.8 % (0.0 - 7.0) BASO 0.7 % (0.0 - 2.0) %IG 0.3 H % (0.0 - 0.0) %NRBC 0.0 % (0.0 - 0.0) #NEUT 3.46 10/uL (2.00 - 6.90) #LYMPH 2.35 10/uL (0.60 - 3.40) #MONO 0.66 10/uL (0.00 - 0.90) #EOS 0.26 10/uL (0.00 - 0.70) #BASO 0.05 10/uL (0.00 - 0.20) #IG 0.02 10/uL (0.00 - 0.10) #NRBC 0.00 10/uL (0.00 - 0.00) MANUAL DIFF NOT INDICATED RBC MORPH NOT INDICATED CMP: (MARCIA: 03/04/2021 19:22) ( MsgRcvd 03/04/2021 20:02) Final results Test Result Flag Units (Reference) COMPREHENSIVE METABOLIC PANEL COMPREHENSIVE METABOLIC PANEL 3 Clinical Report - Physicians/Mid Levels [facility] Emergency Department [address] [place] [address] Phone #: ext- [phone] 03/04/2021 18:07 Patient: REMI PARADA Sex: M : 1965 Age: 55y SODIUM 136 mEq/L (134 - 153) POTASSIUM 3.5 L mEq/L (3.6 - 5.0) CHLORIDE 99 mEq/L (98 - 107) CO2 27 MEQ/L (22 - 30) GLUCOSE 80 MG/DL (70 - 99) BUN 17 MG/DL (7 - 21) CREATININE 0.9 MG/DL (0.7 - 1.5) BUN/CREAT 19 (8 - 27) TOTAL PROTEIN 7.0 G/DL (6.3 - 8.2) ALBUMIN 4.6 G/DL (3.9 - 5.0) GLOBULIN 2.4 GM/DL (2.4 - 3.2) A/G RATIO 1.9 (0.8 - 2.0) CALCIUM 9.5 MG/DL (8.4 - 10.2) TOTAL BILI <0.7 MG/DL (0.2 - 1.3) ALKALINE PHOS 83 U/L (38 - 126) SGOT/AST 49 H U/L (5 - 40) SGPT/ALT 51 U/L (7 - 56) ANION GAP 10.0 mmol/L (8.0 - 16.0) AGE 55 yrs NON-AA GFR >60 mL/min AFR AMER GFR >60 mL/min Male GFR Interprentation 20-49 yrs >60 mL/min Normal 50-59 yrs >56 mL/min Normal 60-69 yrs >49 mL/min Normal 70-79yrs >42 mL/min Normal 80 and above >35 mL/min Normal Female GFR Interpretation 20-39 yrs >60 mL/min Normal 40-49 yrs >58 mL/min Normal 50-59 yrs >51 mL/min Normal 60-69 yrs >45 mL/min Normal 70-79 yrs >39 mL/min Normal 80 and above >32 mL/min Normal PT/PTT: (MARCIA: 03/04/2021 19:22) ( Mscvd 03/04/2021 19:44) Final results Test Result Flag Units (Reference) PROTIME 13.3 SECONDS (11.0 - 15.5) INR 1.00 (0.93 - 1.23) PTT 34.8 SECONDS (24.8 - 36.7) \\BLDo\\INR INTERPRETATION\\BLDx\\ Therapeutic range for Coumadin and related oral anticoagulants. -International Normalized Ratio (INR): 2.0 - 3.0 for Venous Thrombosis, Pulmonary Embolus, Tissue heart valves, Acute LA Atrial Fibrillation, Valvular heart disease and recurrent Systemic Embolism. -International Normalized Ratio (INR): 2.5 - 3.5 for Mechanical Prosthetic valve. Troponin-T: (MARCIA: 03/04/2021 19:22) ( MsgRcvd 03/04/2021 19:50) Final results Test Result Flag Units (Reference) TROPONIN T <0.01 NG/ML (0.00 - 0.10) TROPONIN T0.1 ng/ml Recommended as the clinical threshold value Armin Brody.PROGRESS AND PROCEDURESCourse of Care: 20:18 Mar 04 2021. Evaluation after cardiac monitoring and test results returned.(Discussed risks, benefits, options and pt is agreeable with dx and tx plan, needs to see his PCP forevaluation of his HTN meds.). Patient counseled in person regarding the patient's stable condition, test results, diagnosis and need for 4 Clinical Report - Physicians/Mid [facility] Emergency Department [address] [place] [address] Phone #: ext- [phone] 03/04/2021 18:07 [id number] Sex: M : 1965 Age: 55y follow-up. Patient agrees with plan of care. 20:Mar 04 2021. Disposition: Discharged home in good and improved condition (:Mar 04 2021).CLINICAL IMPRESSION Atypical chest pain Uncontrolled essential hypertension.INSTRUCTIONS Warnings: Further evaluation is necessary. It is very important to follow up with a healthcare provider. GENERAL WARNINGS: Return or contact your physician immediately if your condition worsens or changes unexpectedly, if not improving as expected, or if other problems arise. SPECIFICALLY, return if you develop chest pain, difficulty breathing, a f luttering sensation in your chest, lightheadedness, fainting, extreme fatigue or sudden sweating. Your Current Medications: Your current home medications have been reviewed. CONTINUE TAKING THE FOLLOWING MEDICATIONS: Losartan Potassium- HCTZ Oral : Tablet 100-25 mg, daily. Primidone Oral : Tablet 50 mg, daily. Follow-up: Follow up with your doctor tomorrow. Reason for referral: evaluation and treatment. Summary of care provided to patient. Understanding of the discharge instructions verbalized by patient.(Electronically signed by KIRA Carreno 03/04/2021 23:35) Name Value Range Interpretation Code Description Data [facility]) Supporting Document(s) ID Date Data Source [id number] 03/04/2021 08:20:00 PM EDT [facility] Name Value Range Interpretation Code Description Data [facility]) Supporting Document(s) Urinalysis Laboratory test result [facility] SOURCE: Clean Catch Source Laboratory test result [facility] SOURCE: Clean Catch Color Laboratory test result [facility] SOURCE: Clean Catch Clarity Laboratory test result [facility] SOURCE: Clean Catch Spec [place] 1.005 1.001-1.030 [facility] SOURCE: Clean Catch Bilirubin Laboratory test result [facility] SOURCE: Clean Catch Glucose Laboratory test result [facility] SOURCE: Clean Catch pH 6.5 5-9 [facility] SOURCE: Clean Catch Ketone Laboratory test result [facility] SOURCE: Clean Catch Protein Laboratory test result [facility] SOURCE: Clean Catch Nitrite Laboratory test result [facility] SOURCE: Clean Catch Blood Laboratory test result [facility] SOURCE: Clean Catch Leuk Est Laboratory test result [facility] SOURCE: Clean Catch Microscopic Laboratory test result [facility] SOURCE: Clean Catch Urobilinogen Laboratory test result [facility] SOURCE: Clean Catch ID Date Data Source [id number] 03/04/2021 08:32:00 PM EDT [facility] Name Value Range Interpretation Code Description Data Anita rce(s) Supporting Document(s) URINALYSIS [facility] URINALYSIS SOURCE Clean Catch [facility] ital COLOR yellow NORMAL: Yellow [facility] CLARITY clear NORMAL: Clear [facility] Specific gravity of Urine by Test strip 1.005 1.001 - 1.030 [facility] pH 6.5 5 - 9 [facility] Glucose [Mass/volume] in Urine by Test strip NORM NORMAL: Negat trina [facility] Bilirubin.total [Presence] in Urine by Test strip NEG NORMAL: Negative [facility] Ketones [Presence] in Urine by Test strip NEG NORMAL: Negative [facility] Protein [Mass/volume] in Urine by Test strip NEG NORMAL: Negat trina [facility] Nitrite [Presence] in Urine by Test strip NEG NORMAL: Negative [facility] BLOOD NEG NORMAL: Negative [facility] Leukocyte esterase [Presence] in Urine by Test strip NEG AGUSTINA L: Negative [facility] Urobilinogen [Mass/volume] in Urine by Test strip NOR less miles n 1.0 mg/dL [facility] MICROSCOPIC Not Indicate [facility] ospital ID Date Data Source [id number] 03/04/2021 07:22:00 PM EDT [facility] Name Value Range Interpretation Code Description Data Anita rce(s) Supporting Document(s) Comprehensive [employer] Laboratory test result [facility] COMPREHENSIVE METABOLIC PANEL Sodium 136 meq/L 134-153 [facility] Potassium 3.5 meq/L 3.6-5.0 [facility] Co2 27 meq/L 22-30 [facility] Chloride 99 meq/L 98-107 [facility] Glucose 80 mg/dL 70-99 [facility] BUN 17 mg/dL 7-21 [facility] Creatinine 0.9 mg/dL 0.7-1.5 [facility] Total Protein 7.0 g/dL 6.3-8.2 [facility] BUN/Creat 19 8-27 [facility] Globulin 2.4 GM/DL 2.4-3.2 [facility] A/G Ratio 1.9 0.8-2.0 [facility] Albumin 4.6 g/dL 3.9-5.0 [facility] Calcium 9.5 mg/dL 8.4-10.2 [facility] Total Bili Laboratory test result 0.2-1.3 [facility] Sgot/Ast 49 U/L 5-40 [facility] SGPT/Alt 51 U/L 7-56 [facility] Alkaline Phos 83 U/L 38-126 [facility] Non-Aa GFR Laboratory test result [facility] Anion Gap 10.0 mmol/L 8.0-16.0 [facility] Age 55 yrs [facility] Afr Amer GFR Laboratory test result [facility] Male GFR Interprentation 20-49 yrs >60 mL/min Normal 50-59 yrs >56 mL/min Normal 60-69 yrs >49 mL/min Normal 70-79yrs >42 mL/min Normal 80 and above >35 mL/min Normal Female GFR Interpretation 20-39 yrs >60 mL/min Normal 40-49 yrs >58 mL/min Normal 50-59 yrs >51 mL/min Normal 60-69 yrs >45 mL/min Normal 70-79 yrs >39 mL/min Normal 80 and above >32 mL/min Normal ID Date Data Source [id number] 03/04/2021 07:22:00 PM EDT [facility] Name Value Range Interpretation Code Description Data Anita rce(s) Supporting Document(s) Troponin T.cardiac [Mass/volume] in Serum or Plasma Laborato ry test result 0.00-0.10 [facility] TROPONIN T 0.1 ng/ml Recommended as the clinical th reshold value for Troponin T. ID Date Data Source [id number] 03/04/2021 07:22:00 PM EDT [facility] Name Value Range Interpretation Code Description Data Anita rce(s) Supporting Document(s) Inr 1.00 0.93-1.23 [facility] Protime 13.3 s 11.0-15.5 [facility] PTT 34.8 s 24.8-36.7 [facility] \\BLDo\\INR INTERPRETATION\\BLDx\\ Therapeutic range for Coumadin and related oral anticoagulants. -International Normalized Ratio (INR): 2 .0 - 3.0 for Venous Thrombosis, Pulmonary Embolus, Tissue heart valves, Acute LA Atrial Fibrillation, Valvular heart disease and recurrent Systemic Embolism. -International Normalized Ratio (INR): 2 .5 - 3.5 for Mechanical Prosthetic valve. ID Date Data Source [id number] 03/04/2021 07:22:00 PM EDT [facility] Name Value Range Interpretation Code Description Data Anita rce(s) Supporting Document(s) CBC W/Automated Diff Laboratory test result [facility] COMPLETE BLOOD COUNT WBC 6.8 10^3/uL 4.2-11.0 [facility] RBC 4.85 10^6/uL 4.50-6.30 [facility] Hemoglobin 15.5 g/dL 14.0-16.0 [facility] Hematocrit 44.3 % 41.0-51.0 [facility] MCH 32.0 pg 27.0-34.0 [facility] MCV 91.3 fL 80.0-94.0 [facility] MCHC 35.0 g/dL 31.0-36.0 [facility] MPV 9.3 fL 7.4-10.4 [facility] RDW 11.9 % 11.5-14.8 [facility] Platelets 241 10^3/uL 150-450 [facility] Lymph 34.6 % 25.0-40.0 [facility] Neut 50.9 % 37.0-80.0 [facility] [place] 9.7 % 3.0-8.0 [facility] Eos 3.8 % 0.0-7.0 [facility] Baso 0.7 % 0.0-2.0 [facility] %Ig 0.3 % 0.0-0.0 [facility] %NRBC 0.0 % 0.0-0.0 [facility] #[place] 0.66 10^3/uL 0.00-0.90 [facility] #Lymph 2.35 10^3/uL 0.60-3.40 [facility] #Neut 3.46 10^3/uL 2.00-6.90 [facility] #NRBC 0.00 10^3/uL 0.00-0.00 [facility] #Ig 0.02 10^3/uL 0.00-0.10 [facility] #Eos 0.26 10^3/uL 0.00-0.70 [facility] #Baso 0.05 10^3/uL 0.00-0.20 [facility] RBC Morph Laboratory test result [facility] Manual Diff Laboratory test result [facility] ID Date Data Source [id number] 03/04/2021 08:02:00 PM EDT [facility] Name Value Range Interpretation Code Description Data Anita rce(s) Supporting Document(s) COMPREHENSIVE METABOLIC PANEL [facility] COMPREHENSIVE METABOLIC PANEL Sodium [Moles/volume] in Serum or Plasma 136 mEq/L 134 - 153 [facility] Potassium [Moles/volume] in Serum or Plasma 3.5 mEq/L 3.6 - 5.0 L [facility] Chloride [Moles/volume] in Serum or Plasma 99 mEq/L 98 - 107 [facility] Carbon dioxide, total [Moles/volume] in Serum or Plasma 27 MEQ/L 22 - 30 [facility] Glucose [Mass/volume] in Serum or Plasma 80 MG/DL 70 - 99 [facility] BUN 17 MG/DL 7 - 21 [facility] Creatinine [Mass/volume] in Serum or Plasma 0.9 MG/DL 0.7 - 1.5 [facility] BUN/CREAT 19 8 - 27 [facility] al Protein [Mass/volume] in Serum or Plasma 7.0 G/DL 6.3 - 8.2 [facility] Albumin [Mass/volume] in Serum or Plasma 4.6 G/DL 3.9 - 5.0 [facility] Globulin [Mass/volume] in Serum by calculation 2.4 GM/DL 2.4 - 3.2 [facility] A/G RATIO 1.9 0.8 - 2.0 [facility] Calcium [Mass/volume] in Serum or Plasma 9.5 MG/DL 8.4 - 10.2 [facility] Bilirubin.total [Mass/volume] in Serum or Plasma <0.7 MG/DL 0.2 - 1.3 [facility] Alkaline phosphatase [Enzymatic activity/volume] in Serum or Plasma 83 U/L 38 - 126 [facility] Aspartate aminotransferase [Enzymatic activity/volume] in Serum or Plasma 49 U/L 5 - 40 H [facility] Alanine aminotransferase [Enzymatic activity/volume] in Seru m or Plasma 51 U/L 7 - 56 [facility] Anion gap 3 in Serum or Plasma 10.0 mmol/L 8.0 - 16.0 [facility] AGE 55 yrs [facility] NON-AA GFR >60 mL/min [facility] ital AFR AMER GFR >60 mL/min [facility] spital Male GFR In terprentation 20-49 yrs >60 mL/min Normal 50-59 yrs >56 mL/min Normal 60-69 yrs >49 mL/min Normal 70-79yrs >42 mL/min Normal 80 and above >35 mL/min Normal Female GFR Interpretation 20-39 yrs >60 mL/min Normal 40-49 yrs >58 mL/min Normal 50-59 yrs >51 mL/min Normal 60-69 yrs >45 mL/min Normal 70-79 yrs >39 mL/min Normal 80 and above >32 mL/min Normal ID Date Data Source [id number] 03/04/2021 07:50:00 PM EDT [facility] Name Value Range Interpretation Code Description Data Anita rce(s) Supporting Document(s) TROPONIN T <0.01 NG/ML 0.00 - 0.10 [facility] ospital TROPONIN T0.1 ng/ml Recommended as the c linical threshold value forTroponin T. ID Date Data Source [id number] 03/04/2021 07:43:00 PM EDT [facility] Name Value Range Interpretation Code Description Data Anita rce(s) Supporting Document(s) Prothrombin time (PT) 13.3 SECONDS 11.0 - 15.5 [facility] INR in Platelet poor plasma by Coagulation assay 1.00 0.93 - 1. 23 [facility] aPTT in Blood by Coagulation assay 34.8 SECONDS 24.8 - 36.7 [facility] \\BLDo\\INR INTERPRETATION\\BLDx\\ Therapeutic range for Coumadin and related oral anticoagulants. - International Normalized Ratio (INR): 2.0 - 3.0 for Venous Thrombosis, Pulmonary Embolus, Tissue heart valves, Acute LA Atrial Fibrillation, Valvular heart disease and recurrent Systemic Embolism. - International Normalized Ratio (INR): 2.5 - 3.5 for Mechanical Prosthetic valve. ID Date Data Source [id number] 03/04/2021 07:32:00 PM EDT [facility] Name Value Range Interpretation Code Description Data Anita e(s) Supporting Document(s) CBC W/AUTOMATED DIFF [facility] COMPLETE BLOOD COUNT Leukocytes [#/volume] in Blood by Automated count 6.8 10^3/uL 4.2 - 1 1.0 [facility] Erythrocytes [#/volume] in Blood by Automated count 4.85 10^6/uL 4. 50 - 6.30 [facility] Hemoglobin [Mass/volume] in Blood 15.5 g/dL 14.0 - 16.0 [facility] Hematocrit [Volume Fraction] of Blood by Automated count 44.3 % 4 1.0 - 51.0 [facility] Erythrocyte mean corpuscular volume [Entitic volume] by Auto mated count 91.3 fL 80.0 - 94.0 [facility] Erythrocyte mean corpuscular hemoglobin [Entitic mass] by Automated count 32.0 pg 27.0 - 34.0 [facility] Erythrocyte mean corpuscular hemoglobin concentration [Mass/volume] by Automated count 35.0 g/dL 31.0 - 36.0 [facility] Erythrocyte distribution width [Ratio] by Automated count 11.9 % 11.5 - 14.8 [facility] Platelets [#/volume] in Blood by Automated count 241 10^3/uL 150 - 45 0 [facility] Platelet mean volume [Entitic volume] in Blood by Automated count 9.3 fL 7.4 - 10.4 [facility] Neutrophils/100 leukocytes in Blood by Automated count 50.9 % 37. 0 - 80.0 [facility] Lymphocytes/100 leukocytes in Blood by Manual count 34.6 % 25.0 - 40.0 [facility] Monocytes/100 leukocytes in Blood by Automated count 9.7 % 3.0 - 8.0 H [facility] Eosinophils/100 leukocytes in Blood by Automated count 3.8 % 0.0 - 7.0 [facility] Basophils/100 leukocytes in Blood by Automated count 0.7 % 0.0 - 2.0 [facility] %IG 0.3 % 0.0 - 0.0 H [facility] al %NRBC 0.0 % 0.0 - 0.0 [facility] al Neutrophils [#/volume] in Blood by Automated count 3.46 10^3/uL 2.00 - 6.90 [facility] Lymphocytes [#/volume] in Blood by Automated count 2.35 10^3/uL 0.60 - 3.40 [facility] Monocytes [#/volume] in Blood by Automated count 0.66 10^3/uL 0.00 - 0.90 [facility] Eosinophils [#/volume] in Blood by Automated count 0.26 10^3/uL 0.00 - 0.70 [facility] Basophils [#/volume] in Blood by Automated count 0.05 10^3/uL 0.00 - 0.20 [facility] #IG 0.02 10^3/uL 0.00 - 0.10 [facility] #NRBC 0.00 10^3/uL 0.00 - 0.00 [facility] ospital MANUAL DIFF NOT INDICATED [facility] RBC MORPH NOT INDICATED [facility] spital ID Date Data Source [id number] 01/30/2021 06:34:20 AM EDT [facility], PCName: Remi ParadaDOB: 1965Provider: Gee Osborn DeannaDOS: 01/28/2021 Reason For VisitRemi Parada is here today for right shoulder. Remi had his first Covid vaccine on 10/14/20. Remi had his second Covid vaccine on 10/31/20. Remi Parada is an established patient here for follow up. (illustrator ). Patient is working at this time at regular duty. History of Present IllnessCHIEF COMPLAINTFollow-up evaluation of right shoulder pain.HISTORY OF PRESENT ILLNESSThe patient is a 55-year-old male who is here for follow-up of right shoulder pain. The patient had a subacromial injection on 12/09/2020. The injection lasted 3-4 weeks. He now has 2/10 sharp pain that is intermittent. The patient states that it does not affect his ADLs. He takes Tylenol occasionally, but no NSAIDs. He has never had surgery on this shoulder. He comes to see me today. He was seen by Sandar Yanez PA-C, last visit for that injection. She felt that his diagnosis was primary arthritis of the shoulder. He states the recent injection took about 3 to 4 weeks to provide relief. The patient states that he has been dealing with the right shoulder pain for 5 years, but it went away with an injection 5 years ago and it has been helping him until about the last 6 months, when it started getting worse. He reports the pain is radiating up into the neck and causes him discomfort. He affirms that t he pain currently is tolerable. He states that the glenohumeral injection that Sandra gave him is working better than the subacromial injection he got the first time. The patient works as an illustrator, full duty. Results/Data OtherHe did have x-rays done in 2020; MRI last was done in 2014.He did have a CAT scan arthrogram done in [place] on 10/17/2020 showing moderate arthritis, labral tear, no obvious rotator cuff tear. AssessmentASSESSMENTRight shoulder primary osteoarthritis. Daksha and I discussed his right shoulder. He definitely got some arthritis, but he is doing well with the glenohumeral injection. We are going to watch him for now after discussing options. His pain is tolerable. If it hurts, I will see him back and consider repeating that shot. The patient agrees with this plan. Scribed by Roxy Camarena on 01/28/2021 at 12:24 PM for Gee Osborn Signatures Electronically signed by : Roxy Camarena MA; Jan 28 2021 12:24PM EST (Author) Electronically signed by : Gee Osborn M.D.; Jan 30 2021 6:34AM EST Name Value Range Interpretation Code Description Data Anita rce(s) Supporting Document(s) ID Date Data Source [id number] 12/10/2020 01:27:55 PM EDT [facility] PCName: Remi ParadaDOB: 1965Provider: Lobito Yanez: 12/09/2020 Reason For VisitRemi Parada is here today for right shoulder. Remi had his first Covid vaccine on 10/14/20. Remi had his second Covid vaccine on 10/31/20. Remi Parada is an established patient here for follow up. Patient states their pain is a 9 out of 10. (illustrator ). Patient is working at this time at regular duty. History of Present IllnessPatient is fractures. Having continued pain in the shoulder. He feels that the subacromial injection did help with the anterior aspect of the shoulder but now is having posterior aspect shoulder pain. He received a cortisone injection to the posterior shoulder glenohumeral joint about 5 years ago and had no issues up until recently. He is hoping to discuss another injection today. He is unable to have an MRI because he has a spinal stimulator. AssessmentAre 3Right shoulder primary is at the glenohumeral jointPlan: The cortisone injection he received in October gave about 50% relief. After discussing risks and benefits we decided to try a glenohumeral joint injection today, approached posteriorly, he tolerated this well. He is considering surgical intervention, but hoping to avoid it with this injection. He will follow back up in 6 weeks to discuss further treatment options if the pain persists then he would like to talk more about surgical options. PlanPlan, Assessment and Recommendation(s) Schedule appointment: in 4-6 weeks. The nature of the diagnosis and various treatment alternatives were discussed today, including invasive, operative, and non- operative options. This document was dictated and electronically signed using [employer] software. A reasonable attempt at proof reading has been made to minimize errors. Please call with any questions. Signatures Electronically signed by : Sandra Yanez PA-C; Dec 10 2020 11:24AM EST (Author) Electronically signed by : Gee Osborn M.D.; Dec 10 2020 1:27PM EST Name Value Range Interpretation Code Description Data Anita rce(s) Supporting Document(s) ID Date Data Source [id number] 10/28/2020 02:37:58 PM EST [facility] PCName: Remi ParadaDOB: 1965Provider: Lobito Yanez: 10/28/2020 Reason For VisitRemi Parada is here today for right shoulder. Remi had his first Covid vaccine on 10/14/20. Remi is scheduled to have his first Covid vaccine on 10/14/20. Remi is scheduled to have his second Covid vaccine on 11/01/20. Remi Parada is an established patient here for follow up. Patient states their pain is a 8 out of 10. (illustrator ). Patient is working at this time at regular duty. History of Present IllnessPatient is still struggling with pain in the shoulder and as per his recent visit virtual visit with Dr. Osborn he would like to go ahead with the scheduled cortisone injection today. AssessmentRight shoulder primary glenohumeral joint osteoarthritisPlan: Patient has continued to struggle with pain in the shoulder and would like to go ahead with the scheduled cortisone injection today. We did ultimately decide on a subacromial injection given his complaints today. He will follow back up in 6 weeks, should this fail we can always consider a glenohumeral joint injection. He agrees with this treatment plan. PlanPlan, Assessment and Recommendation(s) Schedule appointment: in 4-6 weeks. The nature of the diagnosis and various treatment alternatives were discussed today, including invasive, operative, and non-operative options. This document was dictated and electronically signed using [employer] software. A reasonable attempt at proof reading has been made to minimize errors. Please call with any questions. Signatures Electronically signed by : Sandra Yanez PA-C; Oct 28 2020 9:59AM EST (Author) Electronically signed by : Gee Osborn M.D.; Oct 28 2020 2:37PM EST Name Value Range Interpretation Code Description Data Anita rce(s) Supporting Document(s) ID Date Data Source [id number] 10/25/2020 06:40:09 AM EST [facility] PCName: Remi ParadaDOB: 1965Provider: Gee OsbornDOS: 10/24/2020 Reason For VisitVerbal consent obtained from the patient for telemedicine visit. This assessment was done using telemedicine as a result of social distancing due to the outbreak of COVID-19. 5.9 minutes for review of chart, virtual visit itself, and documentation. Remi Parada is here today for right shoulder. Remi Parada is here for evaluation of arthrogram results and Remi Parada is here for evaluation of CT results. (Illustrator ). Patient is working at this time at regular duty. History of Present IllnessCHIEF COMPLAINTVirtual follow-up visit for right shoulder.TIME SPENT5 minutes and 9 seconds.HISTORY OF PRESENT ILLNESSThis is a virtual follow-up visit for a 55-year-old male regarding his right shoulder. He has had years worth of right shoulder pain. The pain got worse after lifting a piece of plywood. We are concerned for rotator cuff. He still rates it at 9/10, and it is sharp pain and it is waking him up at night. No real issue with ADLs. He has been using BioFreeze, rest, and ice., which does not really help.He is an illustrator, full duty. Results/Data OtherHe had a CT arthrogram because we are concerned about a tear. The CT arthrogram was done, on 10/17/2020 through [facility], showing moderate arthritic change in the glenohumeral joint and in the AC joint. There is kind of a posterior labral degenerative tear but no rotator cuff tear. AssessmentASSESSMENTRight shoulder primary glenohumeral osteoarthritis. Daksha and I discussed his shoulder. I explained that I do not see an obvious rotator cuff tear. Therefore, my recommendation would be to come in and try a cortisone shot into the shoulder, possibly even the glenohumeral joint to see how he responds. He agrees with the plan. We will make that appointment for him. Disclaimers Scribed by Roxy Camarena on 10/24/2020 at 02:57 PM for Gee Osborn Signatures Electronically signed by : Roxy Camarena MA; Oct 24 2020 2:57PM EST (Author) Electronically signed by : Gee Osborn M.D.; Oct 25 2020 6:40AM EST Name Value Range Interpretation Code Description Data Anita rce(s) Supporting Document(s) ID Date Data Source [id number] 10/18/2020 10:26:00 AM EST [facility] [address] [place] [address] PHONE: [phone] FAX: [phone] Name .................. : TAL Che Acct Number.................. : [id number] ROOM. ................. : Number ................... : [id number] Stay type ............. : O/P Discharge Date......... ... : 10/17/20 Admit Date ......... : 10/17/20 Admit Phys .................... : IRENA HUERTA Date of ....... : 1965 Family Phys ................... : LENORA Rodgers Phone .................. : [phone] Age ................................ : 55 Film# .................. .:[id number] Sex ................................. : M Unsigned transcriptions are preliminary reports and do not represent a medical or legal document CT UPPER EXT RT W CONT [id number] COMPLETE:10/17/20 10:48 [facility] (REASON FOR EXAM: CT ARTHROGRAM CT OF THE RIGHT SHOULDER: TECHNIQUE: Imaging was performed following intra-articular Gadolinium administration. FINDINGS: Moderate osteoarthritic changes are noted in the glenohumeral joint and acromioclavicular joint. Fracture, destructive osseous lesion or dislocation is not identified. The tendons of the rotator cuff are grossly unremarkable. There is no communication of the subacromial/sub deltoid bursa with the glenohumeral joint which excludes a full thickness tear of the supraspinatus or infraspinatus tendons. In the superior aspect of the posterior labrum, a defect is seen with contrast filling that is consistent with posterior labral tear. Additional evidence of labral tear is not seen. A superior labral recess is incidentally noted. The visualized lung sotelo are clear. Adenopathy is not seen in the right inguinal region. IMPRESSION: Moderate osteoarthritic changes. Tear posterior labrum. Otherwise unremarkable examination. While performing the above CT examination, radiation dose reduction was accomplished utilizing automated exposure control, adjusting of the mA and kV based on the patient's body size and/or the use of imperative reconstructive techniques. CT dose: 435.6 mGycm Contrast agent in mL: 75 Isovue 370 Method of administration: Intravenous [address] [facility] [address] [place] [address] PHONE: [phone] FAX: [phone] Name .................. : TAL Che Acct Number.................. : [id number] ROOM. ................. : MR Number ................... : [id number] Stay type ............. : O/P Discharge Date......... ... : 10/17/20 Admit Date ......... : 10/17/20 Admit Phys .................... : IRENA HUERTA Date of ....... : 1965 Family Phys ................... : LENORA Ketera Phone .................. : [phone] Age ................................ : 55 Film# .................. .:[id number] Sex ................................. : M Unsigned transcriptions are preliminary reports and do not represent a medical or legal document CT UPPER EXT RT W CONT [id number] COMPLETE:10/17/20 10:48 [facility] 3143 (REASON FOR EXAM: CT ARTHROGRAM Electronically Reviewed and Signed By Casandra Kramer MD , 10/18/20 10:26, KGG Transcribe Initials: BENY , Transcribe Date: 10/17/20 21:48, Dictation Date: Copy for: IRENA HUERTA Copy for: 710 MED REC Page 2 of 2 Name Value Range Interpretation Code Description Data Anita rce(s) Supporting Document(s) ID Date Data Source [id number] 10/18/2020 10:20:00 AM EST [facility] [address] [place] [address] PHONE: [phone] FAX: [phone] Name .................. : TAL Che Acct Number.................. : [id number] ROOM. ................. : Number ................... : [id number] Stay type ............. : O/P Discharge Date......... ... : 10/17/20 Admit Date ......... : 10/17/20 Admit Phys .................... : IRENA HUERTA Date of ....... : 1965 Family Phys ................... : LENORA Rodgers Phone .................. : [phone] Age ................................ : 55 Film# .................. .:[id number] Sex ................................. : M Unsigned transcriptions are preliminary reports and do not represent a medical or legal document INJECTION FOR SHOULDER ARTHRO [id number] COMPLETE:10/17/20 11:28 [facility]134 (REASON FOR PROCESS: R SHOULDER PAIN SHOULDER 1 VIEW RT [id number] COMPLETE:10/17/20 11:28 [facility]142 (REASON FOR PROCESS: ARTHROGRAM FLUOROSCOPIC EXAMINATION OF THE RIGHT SHOULDER FOR CT ARTHROGRAM, 10/17/20: INDICATION: Pain. FINDINGS: Sleep Lab Technician film shows degenerative changes. No acute findings. PROCEDURE: The benefits and risks of the examination were discussed with the patient. The patient has given informed consent for the procedure. A time out was performed confirming the right shoulder is the proper shoulder for today's examination. The skin surface was marked using fluoroscopic guidance. The skin was prepped and dressed in normal sterile fashion. Superficial and deep Lidocaine administration was performed with a 25-gauge needle. A 22- gauge spinal needle was then placed and advanced under fluoroscopic guidance. The needle was passed into the joint space at which time iodinated contrast was administered to confirm proper placement. Approximately 5 cc of iodinated contrast was administered. Iodinated contrast 7 cc was administered. The needle was then removed. The skin was cleansed and bandaged. No complications were experienced during the procedure. Fluoro time is 5 seconds, 3 images are obtained. Page 1 of 2 [place] [address] PHONE: [phone] FAX: [phone] Name .................. : TAL Che Acct Number.................. : [id number] ROOM. ................. : Number ................... : [id number] Stay type ............. : O/P Discharge Date......... ... : 10/17/20 Admit Date ......... : 10/17/20 Admit Phys .................... : IRENA HUERTA Date of ....... : 1965 Family Phys ................... : LENORA Rodgers Phone .................. : [phone] Age ................................ : 55 Film# .................. .:[id number] Sex ................................. : M Unsigned transcriptions are preliminary reports and do not represent a medical or legal document INJECTION FOR SHOULDER ARTHRO [id number] COMPLETE:10/17/20 11:28 [facility] (REASON FOR PROCESS: R SHOULDER PAIN SHOULDER 1 VIEW RT [id number] COMPLETE:10/17/20 11:28 [facility]142 (REASON FOR PROCESS: ARTHROGRAM Examination dictated by KIRA Malave. Examination was reviewed with Casandra Kramer MD, radiologist at the time of this dictation. Electronically Reviewed and Signed By Casandra Kramer MD , 10/18/20 10:20, KGG Transcribe Initials: SSR, Transcribe Date: 10/17/20 11:42, Dictation Date: Copy for: IRENA HUERTA Copy for: [address] [place] [address] REC Page 2 of 2 Name Value Range Interpretation Code Description Data Anita rce(s) Supporting Document(s) ID Date Data Source [id number] 10/18/2020 10:20:00 [place] [address] PHONE: [phone] FAX: [phone] Name .................. : TAL Che Acct Number.................. : [id number] ROOM. ................. : MR Number ................... : [id number] Stay type ............. : O/P Discharge Date......... ... : 10/17/20 Admit Date ......... : 10/17/20 Admit Phys .................... : IRENA HUERTA Date of ....... : 1965 Family Phys ................... : LENORA Rodgers Phone .................. : [phone] Age ................................ : 55 Film# .................. .:[id number] Sex ................................. : M Unsigned transcriptions are preliminary reports and do not represent a medical or legal document INJECTION FOR SHOULDER ARTHRO [id number] COMPLETE:10/17/20 11:28 [facility] (REASON FOR PROCESS: R SHOULDER PAIN SHOULDER 1 VIEW RT [id number] COMPLETE:10/17/20 11:28 [facility]142 (REASON FOR PROCESS: ARTHROGRAM FLUOROSCOPIC EXAMINATION OF THE RIGHT SHOULDER FOR CT ARTHROGRAM, 10/17/20: INDICATION: Pain. FINDINGS: Sleep Lab Technician film shows degenerative changes. No acute findings. PROCEDURE: The benefits and risks of the examination were discussed with the patient. The patient has given informed consent for the procedure. A time out was performed confirming the right shoulder is the proper shoulder for today's examination. The skin surface was marked using fluoroscopic guidance. The skin was prepped and dressed in normal sterile fashion. Superficial and deep Lidocaine administration was performed with a 25-gauge needle. A 22- gauge spinal needle was then placed and advanced under fluoroscopic guidance. The needle was passed into the joint space at which time iodinated contrast was administered to confirm proper placement. Approximately 5 cc of iodinated contrast was administered. Iodinated contrast 7 cc was administered. The needle was then removed. The skin was cleansed and bandaged. No complications were experienced during the procedure. Fluoro time is 5 seconds, 3 images are obtained. Page [address] [facility] [address] [place] [address] PHONE: [phone] FAX: [phone] Name .................. : TAL Che Acct Number.................. : [id number] ROOM. ................. : Number ................... : [id number] Stay type ............. : O/P Discharge Date......... ... : 10/17/20 Admit Date ......... : 10/17/20 Admit Phys .................... : IRENA HUERTA Date of ....... : 1965 Family Phys ................... : LENOAR Rodgers Phone .................. : [phone] Age ................................ : 55 Film# .................. .:[id number] Sex ................................. : M Unsigned transcriptions are preliminary reports and do not represent a medical or legal document INJECTION FOR SHOULDER ARTHRO [id number] COMPLETE:10/17/20 11:28 [facility] 3134 (REASON FOR PROCESS: R SHOULDER PAIN SHOULDER 1 VIEW RT [id number] COMPLETE:10/17/20 11:28 [facility] 3142 (REASON FOR PROCESS: ARTHROGRAM Examination dictated by KIRA Malave. Examination was reviewed with Casandra Kramer MD, radiologist at the time of this dictation. Electronically Reviewed and Signed By Casandra Kramer MD , 10/18/20 10:20, KGG Transcribe Initials: SSR, Transcribe Date: 10/17/20 11:42, Dictation Date: Copy for: IRENA HUERTA Copy for: [address] [facility] REC Page 2 of 2 Name Value Range Interpretation Code Description Data Anita rce(s) Supporting Document(s) ID Date Data Source [id number] 10/01/2020 05:12:14 PM EST [facility] PCName: Remi ParadaDOB: 1965Provider: Gee OsbornDOS: 10/01/2020 Reason For VisitRemi Parada is here today for right shoulder. Remi Parada is an established patient here for a new problem. States he has had pain x 5-6 weeks, 9/10 at the end of the shoulder. He has been managing with biofreeze and has not had formal physical therapy or taken any nsaids. The patient was notified that the office visit was recorded to enhance documentation accuracy. (illustrator ). Patient is working at this time at regular duty. History of Present IllnessCHIEF COMPLAINTInitial evaluation of right shoulder pain.HISTORY OF PRESENT ILLNESSThe patient is a 55-year-old knqms-gxso-hdqctevx male who presents for initial evaluation of right shoulder pain. I saw him back in 2015, I guess, for his right shoulder. This has been going on for years. He is complaining of pain again after lifting a piece of plywood, that was about 5 to 6 weeks ago, when it re-aggravated. He states he wa s doing well until this injury occurred. He rates it at 9/10 sharp pain, it aches, and there is no radiation. He has had no effect on his ADLs. He has been using Biofreeze. No surgery. He did have an injection back in 2015, that did help him. He reports that if he sleeps on the right side, the pain wakes him up at night.He is an illustrator, full duty. Results/DataX-rays, 3 views, of the right shoulder; AP, Y, axillary views were ordered, obtained, and interpreted by me in the office today. These reveal mild AC arthritis, degenerative cyst greater tuberosity consistent with chronic impingement, glenohumeral joint shows mild irregularity consistent with possible mild glenohumeral arthritis. Y view shows a type II acromion.Of note, he did have an MRI back in 2014 that showed rotator cuff tendinosis. AssessmentASSESSMENT1. Right shoulder chronic impingement.2. 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 Right shoulder mild primary glenohumeral joint osteoarthritis. Plan X- Ray I Shoulder - 2 views (XRays were ordered, obtained and interpreted today in theoffice. Indication: pain/dysfunction.); Status:Complete; Done: 01Oct2020 Perform:SOS29; Due:15Oct2020; Last Updated By:Sandra Steve; 10/01/2020 8:10:09 AM;Ordered; For:Right shoulder pain; Ordered By:Get Marshall;Laterality: : Right PLANJeff and I discussed his shoulder at length, I am concerned about a progression of rotator cuff tear. This has been going on for years, it seems to be getting worse and not better. He had a traumatic event 6 weeks ago with some plywood that may have aggravated it further, so my recommendation given his scenario is an updated and new MRI of this right shoulder. He agrees and I will see him back after. Scribed by Roxy Camarena on 10/01/2020 at 12:39 PM for Gee Osborn Signatures Electronically signed by : Roxy Camarena MA; Oct 01 2020 12:39PM EST (Author) Electronically signed by : Gee Osborn M.D.; Oct 01 2020 5:12PM EST Name Value Range Interpretation Code Description Data [facility](s) Supporting Document(s) ID Date Data Source [id number] 09/30/2020 08:14:00 AM EST [facility] Name Value Range Interpretation Code Description Data [facility]) Supporting Document(s) Comprehensive [facility] Laboratory test result [facility] Is patient fasting? Y Sodium 137 meq/L 134-153 [facility] Is patient fasting? Y Potassium 3.8 meq/L 3.6-5.0 [facility] Is patient fasting? Y Chloride 99 meq/L 98-107 [facility] Is patient fasting? Y Co2 31 meq/L 22-30 [facility] Is patient fasting? Y Glucose 109 mg/dL 65-110 [facility] Is patient fasting? Y BUN 18 mg/dL 7-21 [facility] Is patient fasting? Y Creatinine 1.0 mg/dL 0.7-1.5 [facility] Is patient fasting? Y Total Protein 7.3 g/dL 6.3-8.2 [facility] Is patient fasting? Y BUN/Creat 18 8-27 [facility] Is patient fasting? Y Albumin 4.7 g/dL 3.9-5.0 [facility] Is patient fasting? Y Globulin 2.6 GM/DL 2.4-3.2 [facility] Is patient fasting? Y A/G Ratio 1.8 0.8-2.0 [facility] Is patient fasting? Y Total Bili Laboratory test result 0.2-1.3 [facility] ([facility] Is patient fasting? Y Calcium 9.6 mg/dL 8.4-10.2 [facility] Is patient fasting? Y Sgot/Ast 51 U/L 5-40 [facility] Is patient fasting? Y Alkaline Phos 68 U/L 38-126 [facility] Is patient fasting? Y SGPT/Alt 69 U/L 7-56 [facility] Is patient fasting? Y Anion Gap 7.0 mmol/L 8.0-16.0 [facility] Is patient fasting? Y Age 55 yrs [facility] Is patient fasting? Y Non-Aa GFR Laboratory test result [facility] Is patient fasting? Y Afr Amer GFR Laboratory test result [facility] Is patient fasting? Y ID Date Data Source [id number] 09/30/2020 08:14:00 AM EST [facility] Name Value Range Interpretation Code Description Data Anita rce(s) Supporting Document(s) Cve Panel Laboratory test result [facility] Is patient fasting? Y Cholesterol 198 mg/dL 131-200 [facility] Is patient fasting? Y Triglycerides 141 mg/dL 35-160 [facility] Is patient fasting? Y HDL 51 mg/dL 29-86 [facility] Is patient fasting? Y LDL 131 mg/dL 65-175 [facility] Is patient fasting? Y Risk Factor 3.9 3.4-4.9 [facility] Is patient fasting? Y LDL/HDL 2.57 1.00-3.55 [facility] Is patient fasting? Y ID Date Data Source [id number] 09/30/2020 08:14:00 AM EST [facility] Name Value Range Interpretation Code Description Data Anita e(s) Supporting Document(s) Hemoglobin A1c/Hemoglobin.total in Blood 5.9 % 4.4-6.1 [facility] Is patient fasting? Y ID Date Data Source [id number] 09/30/2020 09:21:00 AM EST [facility] Name Value Range Interpretation Code Description Data [facility](s) Supporting Document(s) COMPREHENSIVE METABOLIC PANEL [facility] COMPREHENSIVE METABOLIC PANEL Sodium [Moles/volume] in Serum or Plasma 137 mEq/L 134 - 153 [facility] Potassium [Moles/volume] in Serum or Plasma 3.8 mEq/L 3.6 - 5.0 [facility] Chloride [Moles/volume] in Serum or Plasma 99 mEq/L 98 - 107 [facility] Carbon dioxide, total [Moles/volume] in Serum or Plasma 31 MEQ/L 22 - 30 H [facility] Glucose [Mass/volume] in Serum or Plasma 109 MG/DL 65 - 110 [facility] BUN 18 MG/DL 7 - [facility] Creat[facility] [Mass/volume] in Serum or Plasma 1.0 MG/DL 0.7 - 1.5 [facility] BUN/CREAT 18 8 - 27 [facility] Protein [Mass/volume] in Serum or Plasma 7.3 G/DL 6.3 - 8.2 [facility] Albumin [Mass/volume] in Serum or Plasma 4.7 G/DL 3.9 - 5.0 [facility] Globulin [Mass/volume] in Serum by calculation 2.6 GM/DL 2.4 - 3.2 [facility] A/G RATIO 1.8 0.8 - 2.0 [facility] Calcium [Mass/volume] in Serum or Plasma 9.6 MG/DL 8.4 - 10.2 [facility] Bilirubin.total [Mass/volume] in Serum or Plasma <0.7 MG/DL 0.2 - 1.3 [facility] Alkaline phosphatase [Enzymatic activity/volume] in Serum or Plasma 68 U/L 38 - 126 [facility] Aspartate aminotransferase [Enzymatic activity/volume] in Serum or Plasma 51 U/L 5 - 40 H [facility] Alanine aminotransferase [Enzymatic activity/volume] in Seru m or Plasma 69 U/L 7 - 56 H [facility] Anion gap 3 in Serum or Plasma 7.0 mmol/L 8.0 - 16.0 L [facility] AGE 55 yrs [facility] al NON-AA GFR >60 mL/min [facility] Hosp ital AFR AMER GFR >60 mL/min [facility] Ho spital Male GFR In terprentation 20-49 yrs >60 mL/min Normal 50-59 yrs >56 mL/min Normal 60-69 yrs >49 mL/min Normal 70-79yrs >42 mL/min Normal 80 and above >35 mL/min Normal Female GFR Interpretation 20-39 yrs >60 mL/min Normal 40-49 yrs >58 mL/min Normal 50-59 yrs >51 mL/min Normal 60-69 yrs >45 mL/min Normal 70-79 yrs >39 mL/min Normal 80 and above >32 mL/min Normal ID Date Data Source [id number] 09/30/2020 09:05:00 AM EST [facility] Name Value Range Interpretation Code Description Data Anita rce(s) Supporting Document(s) CVE PANEL [facility] LIPID PANEL Cholesterol [Mass/volume] in Serum or Plasma 198 MG/DL 131 - 200 [facility] Deprecated Triglyceride [Mass/volume] in Serum or Plasma 141 MG/DL 3 5 - 160 [facility] HDL 51 MG/DL 29 - 86 [facility] Cholesterol in LDL [Mass/volume] in Serum or Plasma by Direc t assay 131 mg/dL 65 - 175 [facility] Cholesterol.total/Cholesterol in HDL [Mass Ratio] in Serum o r Plasma 3.9 3.4 - 4.9 [facility] LDL/HDL 2.57 1.00 - 3.55 [facility] CVE RISK CHOL/HDL LDL/HDLMEN: 1/2 AVERAGE 3.43 1.00 AVERAGE 4.97 3.55 2X AVERAGE 9.55 6.25 3X AVERAGE 23.99 7.99WOMEN: 1/2 AVERAGE 3.27 1.47 AVERAGE 4.44 3.22 2X AVERAGE 7.05 5.03 3X AVERAGE 11.04 6.14 ID Date Data Source [id number] 09/30/2020 09:04:00 AM EST [facility] Name Value Range Interpretation Code Description Data Anita rce(s) Supporting Document(s) Hemoglobin A1c/Hemoglobin.total in Blood 5.9 % 4.4 - 6.1 [facility] {A1]{HB] ID Date Data Source [id number] 09/23/2020 08:45:54 AM EST [facility] PCName: Remi ParadaDOB: 1965Provider: Chela Thomas: 09/23/2020 Reason For VisitJedesirae Parada is here today for Right Ankle. Remi Parada is an established patient here for follow up. Patient states that continues to have pain on and off depending on how long he is on his feet. W.C. DOI: 09/10/1987. Patient states the injury occurred while at work. The patient has not had a course of physical therapy for greater than 4 weeks. The patient has not had a course of NSAIDs for greater than 4 weeks. 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 Results/DataXRays were ordered, obtained and interpreted today in the office. Indication: pain/dysfunction. Side: Right Site: Ankle and Foot Views: 3 Views AP/Lateral/Internal Oblique, 2 Views, AP/Mortise Findings: hardware is in good position, the joint remains reduced, Good position of implants and healed fusion. Assessment 1. Ankle joint pain (719.47) (M25.579) Plan<OBX.5.1 ><OBX.5.1.1> X-Ray I Ankle 2 Views </OBX.5.1.1><OBX.5.1.2> Foot 3 Views (XRays were ordered, obtained and interpreted</OBX.5.1.2></OBX.5.1>today in the office. Indication: pain/dysfunction.); Status:Complete; Done: 23Sep2020 Perform:SOS22 ; Due:07Oct2020; Last Updated By:Carley Joseph; 09/23/2020 8:20:09 AM;Ordered; For:Pain in joint involving right ankle and foot; Ordered By:Power Thomas;Laterality: : Right AssessmentWorker's Comp. right ankle troubleStatus post extensive hindfoot and midfoot fusionComplex regional pain syndromePlanContinue trouble. Pain aching throbbing. The longer he is on it, the worse it is. It is manageable. He is able to work, but primarily sedentary. When he is on his feet standing, for long periods of bothers him. He the nerve stimulator does alter sensation in the right foot as well. He can tell when his foot is cold, on the right side, relies on his sensation on the left, to indicate how his right is doing.Overall symptoms staying about the same. He is dealing with it as best he can.X-rays were done today, to make sure there was nothing different. In fact, the fusion looks solid, I see no evidence of progressive arthritis, loosening of the hardware, stress fracture, or anything else that would need to be addressed.As is, we will keep it as is, follow-up in a year. Continue conservative management. I see nothing surgical I recommend. Work / School NoteThe incident described by the patient is a competent medical cause of this injury. The patient's complaints are consistent with the history of the injury/illness. The patient's history of the injury/illness is consistent with my objective findings. The percentage of temporary impairment is 75%. The patient is working at this time. Signatures Electronically signed by : Power Thomas M.D.; Sep 23 2020 8:45AM EST (Author) Name Value Range Interpretation Code Description Data Anita rce(s) Supporting Document(s) Procedure Social History Code Duration Value Status Description Data Source(s ) Smoking 04/09/2021 12:00:00 AM EDT Patient is a former smoker completed Patient is a former smoker [facility] Vital Signs ID Date Data Source UNK Name Value Range Interpretation Code Description Data Source(s) Systolic blood pressure 120 mm[Hg] 120 mm[Hg] M EDENT ([facility] Diastolic blood pressure 80 mm[Hg] 80 mm[Hg] [facility] ([facility] Heart rate 80 /min 80 /min [facility] ([facility] Body weight 204.00 [lb_av] 204.00 [lb_av] MEDEN T ([facility] Body height 70 [in_i] 70 [in_i] MED[facility] ([facility] 5'10" Body mass index (BMI) [Ratio] 29.3 kg/m2 29.3 k g/m2 [facility] ([facility]) Oxygen saturation in Arterial blood by Pulse oximetry 98 % 98 % [facility] ([facility] Body surface area Derived from formula 2.10 m2 2.10 m2 MED[facility] ([facility]) Systolic blood pressure 131 mm[Hg] 131 mm[Hg] M EDENT ([facility]) Diastolic blood pressure 84 mm[Hg] 84 mm[Hg] [facility] ([facility]) Heart rate 64 /min 64 /min [facility] ([facility] Body weight 201.00 [lb_av] 201.00 [lb_av] MEDEN T ([facility] Body height 70 [in_i] 70 [in_i] [facility] 5[facility]10" Body mass index (BMI) [Ratio] 28.8 kg/m2 28.8 k g/m2 [facility] ([facility]) 09/30/20 Oxygen saturation in Arterial blood by Pulse oximetry 98 % 98 % [facility] ([facility] Ra Body surface area Derived from formula 2.09 m2 2.09 m2 [facility] ([facility]) Systolic blood pressure 125 mm[Hg] 125 mm[Hg] M [facility] ([facility] Diastolic blood pressure 81 mm[Hg] 81 mm[Hg] [facility] ([facility] Heart rate 80 /min 80 /min [facility] ([facility] Body temperature 97.8 [degF] 97.8 [degF] [facility] ([facility] Respiratory rate 16 /min 16 /min [facility] ( [facility] Body height 69 [in_i] 69 [in_i] [facility] ([facility] 5'9" Body weight 200.25 [lb_av] 200.25 [lb_av] [facility] ([facility] Oxygen saturation in Arterial blood by Pulse oximetry 98 % 98 % [facility] ([facility] [place] body weight 160 [lb_av] 160 [lb_av] [facility] ([facility] Body mass index (BMI) [Ratio] 29.6 kg/m2 29.6 k g/m2 [facility] ([facility] Body weight 199.38 [lb_av] 199.38 [lb_av] [facility] ([facility] Systolic blood pressure 143 mm[Hg] 143 mm[Hg] M [facility] ([facility] Diastolic blood pressure 89 mm[Hg] 89 mm[Hg] [facility] ([facility] Systolic blood pressure 129 mm[Hg] 129 mm[Hg] M [facility] ([facility] Diastolic blood pressure 83 mm[Hg] 83 mm[Hg] [facility] ([facility] Heart rate 72 /min 72 /min [facility] ([facility] Body temperature 96.7 [degF] 96.7 [degF] [facility] ([facility] Respiratory rate 18 /min 18 /min [facility] ( [facility] Body height 69 [in_i] 69 [in_i] [facility] ([facility] 5'9" Oxygen saturation in Arterial blood by Pulse oximetry 98 % 98 % [facility] ([facility] [place] body weight 160 [lb_av] 160 [lb_av] [facility] ([facility] Body mass index (BMI) [Ratio] 29.4 kg/m2 29.4 k g/m2 [facility] ([facility] Body mass index (BMI) [Ratio] 28.4 kg/m2 28.4 k g/m2 [facility] ([facility]) Heart rate 80 /min 80 /min [facility] ([facility]) [place] body weight 166 [lb_av] 166 [lb_av] MEDEN T ([facility]) Body weight 89.870 kg 89.870 [facility] Body surface area Derived from formula 2.08 m2 2.08 m2 [facility] ([facility]) Body height 70 [in_i] 70 [in_i] [facility] ([facility]) 5'10" Body weight 198.12 [lb_av] 198.12 [lb_av] MEDEN T ([facility]) Body height 70 [in_i] 70 [in_i] [facility] ([facility]) 5'10" Body weight 198.12 [lb_av] 198.12 [lb_av] MEDEN T ([facility]) Body mass index (BMI) [Ratio] 28.4 kg/m2 28.4 k g/m2 [facility] ([facility]) [place] body weight 166 [lb_av] 166 [lb_av] MEDEN T ([facility]) Body weight 89.870 kg 89.870 kg [facility] ([facility]) Body surface area Derived from formula 2.08 m2 2.08 m2 [facility] ([facility]) Diastolic blood pressure 90 mm[Hg] 90 mm[Hg] [facility] ([facility] Heart rate 99 /min 99 /min [facility] ([facility] Body temperature 98.2 [degF] 98.2 [degF] [facility] ([facility] Respiratory rate 16 /min 16 /min [facility] ( [facility] Body height 69 [in_i] 69 [in_i] [facility] ([facility] 5'9" Body weight 211.12 [lb_av] 211.12 [lb_av] [facility] ([facility] Oxygen saturation in Arterial blood by Pulse oximetry 98 % 98 % [facility] ([facility] [place] body weight 160 [lb_av] 160 [lb_av] [facility] ([facility] Systolic blood pressure 129 mm[Hg] 129 mm[Hg] [facility] ([facility] Body mass index (BMI) [Ratio] 31.2 kg/m2 31.2 k g/m2 [facility] ([facility] Systolic blood pressure 148 mm[Hg] 148 mm[Hg] [facility] Diastolic blood pressure 92 mm[Hg] 92 mm[Hg] [facility] ([facility]
[2021-07-10] MEDS ORDERED: PHENYLephrine 500MCG 5ML (100MCG/ML) SYRINGE As Ordered ONE (10:29)
--- NOTE | 2021-07-10 10:29 | ROOR ---
Patient Name: Remi Parada Procedure Date: 07/10/2021 10:12 AM Date of : 1965 Age: 55 Room: [facility] Gender: Male Note Status: Finalized Procedure: Colonoscopy Indications: High risk colon cancer surveillance: Personal history of colonic polyps Providers: Haris Bell Jr, MD Referring MD: Fani Cain NP Requesting Provider: Medicines: Propofol per Anesthesia Complications: No immediate complications. Procedure: Pre-Anesthesia Assessment: - Prior to the procedure, a History and Physical was performed, and patient medications and allergies were reviewed. The patient is competent. The risks and benefits of the procedure and the sedation options and risks were discussed with the patient. All questions were answered and informed consent was obtained. Patient identification and proposed procedure were verified by the physician and the nurse in the pre-procedure area and in the procedure room. Mental Status Examination: alert and oriented. Airway Examination: normal oropharyngeal airway and neck mobility. Respiratory Examination: clear to auscultation. CV Examination: normal. ASA Grade Assessment: II - A patient with mild systemic disease. After reviewing the risks and benefits, the patient was deemed in satisfactory condition to undergo the procedure. The anesthesia plan was to use moderate sedation / analgesia (conscious sedation). Immediately prior to administration of medications, the patient was re-assessed for adequacy to receive sedatives. The heart rate, respiratory rate, oxygen saturations, blood pressure, adequacy of pulmonary ventilation, and response to care were monitored throughout the procedure. The physical status of the patient was re-assessed after the procedure. The Colonoscope was introduced through the anus and advanced to the cecum, identified by appendiceal orifice and ileocecal valve. The colonoscopy was performed without difficulty. The patient tolerated the procedure well. The quality of the bowel preparation was adequate. Findings: The rectum, recto-sigmoid colon, descending colon, transverse colon, ascending colon, cecum, appendiceal orifice and ileocecal valve appeared normal. Many small and large-mouthed diverticula were found in the sigmoid colon. Bleeding internal hemorrhoids were found during retroflexion and during endoscopy. The hemorrhoids were Grade II (internal hemorrhoids that prolapse but reduce spontaneously) and Grade III (internal hemorrhoids that prolapse but require manual reduction). Impression: - The rectum, recto-sigmoid colon, descending colon, transverse colon, ascending colon, cecum, appendiceal orifice and ileocecal valve are normal. - Diverticulosis in the sigmoid colon. - Bleeding internal hemorrhoids. - No specimens collected. Recommendation: - Discharge patient to home (ambulatory). - Repeat colonoscopy in 5 years for surveillance. Procedure Code(s): --- Professional --- 62676, Colonoscopy, flexible; diagnostic, including collection of specimen(s) by brushing or washing, when performed (separate procedure) Diagnosis Code(s): --- Professional --- Z86.010, Personal history of colonic polyps K64.2, Third degree hemorrhoids K57.30, Diverticulosis of large intestine without perforation or abscess without bleeding CPT copyright 2019 [employer]. All rights reserved. The codes documented in this report are preliminary and upon junk dealer review may be revised to meet current compliance requirements. Haris Bell MD Haris Bell Jr, MD 07/10/2021 10:28:48 AM Electronically signed by Haris Bell Jr, MD Number of Addenda: 0 Note Initiated On: 07/10/2021 10:12 AM Estimated Blood Loss: Estimated blood loss: none.
[2021-07-10 10:45] VITALS: BP 116/73
== END 2021-07-10 10:56 | disposition home or self-care (01) ==
LOC: M OPP 09:36
PROVIDERS: ATTEND Surgery
DX: Z12.11 Encounter for screening for malignant neoplasm of colon (principal); Z86.010 Personal history of colon polyps; K57.30 Diverticulosis of large intestine without perforation or abscess without bleeding; K64.2 Third degree hemorrhoids; Z79.82 Long term (current) use of aspirin; Z79.899 Other long term (current) drug therapy; Z80.42 Family history of malignant neoplasm of prostate; Z87.891 Personal history of nicotine dependence
CPT/HCPCS: 45378; J2370

== ENCOUNTER → 2021-11-24 | Outpatient (REF) | payer BC ==
[~2021-11-24] MED LIST changes: -LIDOCAINE 2% 100MG/5ML SDV (FOR ANES.) As Ordered ONE; +LOSA100T45 PO; -LOSA100T50 PO; -NS 1,000 ML IV ONE; -propofoL 200 MG/20 ML VIAL As Ordered ONE
== END ==
LOC: M SFHCDERM 15:49
PROVIDERS: ATTEND Nurse Practitioner Family
DX: L82.1 Other seborrheic keratosis (principal)